=== PATIENT | male | born 1995 | race Caucasian/White ===

== ENCOUNTER → 2021-02-05 09:24 | Outpatient (BNVA) | payer BC, SELFPAY | PROVIDERS: PCP Nurse Practitioner Family; Referring Provider Nurse Practitioner Family; Visit Provider Nurse Practitioner Family ==

== ENCOUNTER → 2021-02-18 15:11 | Outpatient (REF) | payer BC, SELFPAY | LOC: HO.SL 15:11 | PROVIDERS: PCP Nurse Practitioner Family; Visit Provider Nurse Practitioner Family | DX: G47.9 Sleep disorder, unspecified (principal); G47.19 Other hypersomnia; R06.83 Snoring | CPT/HCPCS: 95806 ==

== ENCOUNTER 2021-07-10 05:02 | Inpatient (IN) | payer BC, SELFPAY ==
[2021-07-10] VITALS (18 sets, daily range): BP systolic 128–160; BP diastolic 59–86; PULSE 73–104; RESP 11–18; TEMP 36.8–37.7; O2SAT 94–99; BMI 39.6
--- NOTE | ~2021-07-10 | CT_ITS ---
EXAMINATION: CT ABDOMEN AND PELVIS WITH CONTRAST CLINICAL INFORMATION: Right lower quadrant pain with guarding and rebound. COMPARISON: None TECHNIQUE: Multidetector volumetric images were obtained from the superior aspect of the liver through the pubic symphysis following administration 85 mL of Omnipaque 350 intravenous contrast. Sagittal and coronal reformatted images were obtained on the technologist's workstation. Oral contrast: No This CT examination was performed using dose optimization techniques as appropriate, variously including the following: *Automated exposure control *Adjustment of mA and/or kV according to patient size (this includes techniques or standardized protocols for targeted exams where dose is matched to indication/reason for exam; i.e. extremities or head) *Use of iterative reconstruction technique DLP: 859 mGy-cm FINDINGS: LUNG BASES: The visualized lung bases are unremarkable. LIVER, GALLBLADDER, AND BILIARY TREE: The liver is normal in size and smooth in contour and homogeneous. There is borderline hepatic steatosis. No focal hepatic parenchymal lesion or intrahepatic ductal dilatation. The gallbladder is unremarkable with no evidence of radiopaque gallstones, gallbladder wall thickening, or obvious pericholecystic inflammatory changes. PANCREAS: Unremarkable. SPLEEN: Mild splenomegaly, 15 cm sagittal dimension. Homogeneous. ADRENAL GLANDS: Unremarkable. KIDNEYS AND URETERS: The kidneys are normal in size, shape, and attenuation. No hydronephrosis, hydroureter, or calculi seen. No perinephric stranding. BLADDER: Unremarkable. GASTROINTESTINAL TRACT: There is prominent acute appendicitis with enlarged fluid filled appendix measuring 1.9 cm in diameter with wall enhancement and significant stranding in the right lower quadrant. There is an appendicolith within the lumen measuring 7 x 10 x 17 mm. There is fluid right lower quadrant. There are no extraintestinal gas bubbles or pneumatosis. No proximal obstruction. No loculated fluid collection. ABDOMINAL WALL: No significant hernia is appreciated. LYMPH NODES: Mesenteric adenopathy right lower quadrant adjacent to the appendicitis. VASCULAR: Unremarkable. PELVIC VISCERA: Trace right pelvic ascites. OSSEOUS STRUCTURES: Unremarkable. Results called and discussed with BRENDA Altamirano in the emergency department at [address]/CT abdomen pelvis w con IMPRESSION: 1. Acute appendicitis with extensive periappendiceal inflammatory changes and right lower quadrant fluid and mesenteric adenopathy. 2. No loculated fluid collection. No proximal obstruction. 3. Mild splenomegaly, 15 cm sagittal dimension.
--- NOTE | 2021-07-10 06:20 | ED.ABDPAIN ---
HPI - Abdominal Pain General Chief Complaint: Abdominal Pain Stated Complaint: stomach pain Time Seen by Provider: 07/10/21 06:11 Source: patient Mode of arrival: ambulatory Limitations: no limitations History of Present Illness HPI narrative: INcreased abdominal pain for 1 day, now with continual vomiting. Increased pain in the right lower. MD elicited complaint: abdominal pain Onset (ago): day(s) Pain Consistency: constant Location: RLQ Severity: moderate Quality: stabbing Migration to: RLQ Associated symptoms: nausea and vomiting Related Data Home Medications Medication Instructions Recorded Confirmed sertraline 100 mg tablet 150 mg PO BEDTIME tab 02/05/21 07/10/21 Allergies Allergy/AdvReac Type Severity Reaction Status Date / Time No Known Allergies Allergy Verified 02/05/21 09:32 Review of Systems Constitutional: Reports no additional constitutional complaints Eyes: Reports no additional eye complaints Denies dizziness Cardiovascular: Reports no additional cardiovascular complaints Respiratory: Reports as per HPI Gastrointestinal: Reports no additional gastrointestinal complaints Musculoskeletal: Reports no additional musculoskeletal complaints Skin/Breast: Denies rash Reports system reviewed and no additional complaints, except as documented, Denies dizziness and Denies Sensory deficit (Neuro) Psychiatric: Denies anxiety Physical Exam Vital Signs: Vital Signs: Last Vital Signs Temp 98.3 F 07/10/21 10:37 Pulse 89 07/10/21 10:37 Resp 16 07/10/21 10:37 BP 144/86 H 07/10/21 10:37 Pulse Ox 99 07/10/21 10:37 BMI result Body Mass Index 39.6 Const: Other: Patient in pain Nutritional Appearance: average body habitus Orientation/consciousness: oriented to person and patient oriented x3 Limitations: no limitations HENMT: Head: Yes normal to inspection Ears: external ears normal General nose exam: Normal external nose present Mouth: Normal oral and palatal mucosa present and oropharynx normal Throat: Yes posterior oropharynx normal Eyes: General: appearance normal, both eyes and all related structures Neck: Other: supple Neck: Yes normal visual inspection Chest: Chest palpation & inspection: normal inspection of the chest Resp: Auscultation: clear to auscultation bilaterally Cardio: Jugular venous distension: no JVD Rate: regular rate Rhythm: regular rhythm Heart sounds: S1 normal heart sound present and S2 normal heart sound present GI: Other: right lower quadrant with guarding and rebound Auscultation: normal bowel sounds : General: Yes no CVA tenderness Back/Spine/Pelvis: Back: no CVA tenderness Skin: General skin exam: no rashes or lesions noted Neuro: General: oriented to person and patient oriented x3 Cranial nerves: Yes CN's II-XII intact bilaterally Motor exam (neuro): 5/5 motor strength present throughout Sensory Exam: No Sensory deficit (Neuro) Extrem: General: Yes normal to inspection Psych: Appearance: grossly normal Course Reevaluation(s) Reevaluation #1: discussed with Dr. Chacon who wanted a CT scan. Possible early phlegmon so I started zosyn Time: 08:50 MDM - Abdominal Pain Lab Data Result diagrams: 07/10/21 07:00 07/10/21 07:00 Labs: Lab Results 07/10/21 07/10/21 07/10/21 Range/Units 06:13 07:00 07:00 WBC 16.8 H (4.8-10.8) X10*3/uL RBC 4.81 (4.60-5.80) X10*6/uL Hgb 15.9 (14.0-18.0) g/dl Hct 43.3 (42.0-52.0) % MCV 90.0 (80.0-98.0) fL MCH 33.1 H (27.0-33.0) pg MCHC 36.7 H (31.0-36.0) g/dl RDW 11.5 (11.0-16.0) % Plt Count 230 (160-400) X10*3/uL MPV 9.0 L (9.4-12.4) fL Immature Gran % (Auto) 0.5 H (0.0-0.4) % Neut % (Auto) 87.6 H (45-73) % Lymph % (Auto) 3.5 L (20-40) % [place] % (Auto) 8.2 (2-11) % Eos % (Auto) 0.0 (0-4) % Baso % (Auto) 0.2 (0-2) % Lymph # (Auto) 0.6 L (1.2-4.9) X10*3/uL [place] # (Auto) 1.4 H (0.1-1.2) X10*3/uL Eos # (Auto) 0.0 (0.0-0.4) X10*3/uL Baso # (Auto) 0.0 (0.0-0.2) X10*3/uL Abs Immat Gran (auto) 0.08 H (0.00-0.03) X10*3/uL Absolute Neuts (auto) 14.7 H (2.0-8.3) x10*3/uL Absolute Nucleated RBC 0.000 (0.0-0.012) X10*3/uL Nucleated RBC % (auto) 0.0 (0.0-0.2) /100WBC Sodium 138 (135-145) mmol/L Potassium 3.8 (3.3-5.1) mmol/L Chloride 102 (96-108) mmol/L Carbon Dioxide 24 (22-29) mmol/L Anion Gap 16 (12-20) BUN 13 (9-16) mg/dL Creatinine 1.09 (0.5-1.4) mg/dL Estim Creat Clear Calc 129.3 Estimated GFR > 60 Random Glucose 145 H (60-115) mg/dL Calcium 10.4 H (8.4-10.2) mg/dL Total Bilirubin 1.2 H (0.0-1.0) mg/dL AST 26 (5-37) U/L ALT 31 (0-40) U/L Alkaline Phosphatase 34 L (39-117) U/L Total Protein 7.5 (6.5-8.0) g/dL Albumin 4.6 (3.5-5.0) g/dL Lipase 6 L (8-78) U/L Urine Color Urine Appearance Urine pH (5.0-8.0) Ur Specific [place] (1.005-1.025) Urine Protein (NEG-TRACE) MG/DL Urine Glucose (UA) (NEG) MG/DL Urine Ketones (NEG) MG/DL Urine Blood (NEG) Urine Nitrite (NEG) Ur Leukocyte Esterase (NEG) Urine RBC (0) /HPF Urine WBC (0-4) /HPF Ur Squamous Epith Cells /LPF Urine Bacteria /LPF Urine Mucus /LPF COVID-19 (TENA) Negative (Negative) COVID-19 Clin Com See Note 07/10/21 Range/Units 07:00 WBC (4.8-10.8) X10*3/uL RBC (4.60-5.80) X10*6/uL Hgb (14.0-18.0) g/dl Hct (42.0-52.0) % MCV (80.0-98.0) fL MCH (27.0-33.0) pg MCHC (31.0-36.0) g/dl RDW (11.0-16.0) % Plt Count (160-400) X10*3/uL MPV (9.4-12.4) fL Immature Gran % (Auto) (0.0-0.4) % Neut % (Auto) (45-73) % Lymph % (Auto) (20-40) % [place] % (Auto) (2-11) % Eos % (Auto) (0-4) % Baso % (Auto) (0-2) % Lymph # (Auto) (1.2-4.9) X10*3/uL [place] # (Auto) (0.1-1.2) X10*3/uL Eos # (Auto) (0.0-0.4) X10*3/uL Baso # (Auto) (0.0-0.2) X10*3/uL Abs Immat Gran (auto) (0.00-0.03) X10*3/uL Absolute Neuts (auto) (2.0-8.3) x10*3/uL Absolute Nucleated RBC (0.0-0.012) X10*3/uL Nucleated RBC % (auto) (0.0-0.2) /100WBC Sodium (135-145) mmol/L Potassium (3.3-5.1) mmol/L Chloride (96-108) mmol/L Carbon Dioxide (22-29) mmol/L Anion Gap (12-20) BUN (9-16) mg/dL Creatinine (0.5-1.4) mg/dL Estim Creat Clear Calc Estimated GFR Random Glucose (60-115) mg/dL Calcium (8.4-10.2) mg/dL Total Bilirubin (0.0-1.0) mg/dL AST (5-37) U/L ALT (0-40) U/L Alkaline Phosphatase (39-117) U/L Total Protein (6.5-8.0) g/dL Albumin (3.5-5.0) g/dL Lipase (8-78) U/L Urine Color YELLOW Urine Appearance CLEAR Urine pH 6.5 (5.0-8.0) Ur Specific [place] 1.025 (1.005-1.025) Urine Protein 1+ H (NEG-TRACE) MG/DL Urine Glucose (UA) NEG (NEG) MG/DL Urine Ketones 5 (NEG) MG/DL Urine Blood NEG (NEG) Urine Nitrite NEG (NEG) Ur Leukocyte Esterase NEG (NEG) Urine RBC 0 (0) /HPF Urine WBC 0-2 (0-4) /HPF Ur Squamous Epith Cells NONE /LPF Urine Bacteria NONE /LPF Urine Mucus 1+ /LPF COVID-19 (TENA) (Negative) COVID-19 Clin Com Discharge Plan Discharge Clinical Impression: Acute appendicitis Qualifiers: Acute appendicitis type: with localized peritonitis Appendicitis gangrene presence: without gangrene Appendicitis perforation presence: without perforation Appendicitis abscess presence: without abscess Qualified Code(s): K35.30 - Acute appendicitis with localized peritonitis, without perforation or gangrene Patient Disposition: Admitted As Inpatient Interventions: Admission Worksheet (ED) Last Done: 07/10/21 10:31 [facility] Family History Family History (Updated 07/10/21 @ 10:18 by Kari Urban MD) Father No problems noted. Mother No problems noted. 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
[2021-07-10 06:40] LABS: COVID-19 Test Negative (Negative)
[2021-07-10 07:06] LABS: MANUAL DIFF FLAG NO
[2021-07-10] MEDS: Morphine Sulfate 4 MG/ML CARTRIDGE IVPUSH ×5 (07:07→23:50)
[2021-07-10] MEDS: ondansetron HCL 4 MG/2 ML VIAL IVPUSH ×2 (07:07→16:18)
[2021-07-10] MEDS: 0.9 % Sodium Chloride 1,000 ML 999 ML IVCONT ×2 (07:07→08:06)
[2021-07-10 07:11] LABS: Appearance Urine CLEAR; Basophils Percent Auto 0.2 % (0-2); Color Urine YELLOW; Glucose Urine UA NEG (NEG); Hematocrit 43.3 % (42.0-52.0); Hemoglobin 15.9 g/dl (14.0-18.0); Imm Gran Abs Auto 0.08 X10*3/uL (0.00-0.03); Imm Gran Pct Auto 0.5 % (0.0-0.4); Leukocyte Esterase Urine NEG (NEG); Lymphocytes Absolute Auto 0.6 X10*3/uL (1.2-4.9); Lymphocytes Percent Auto 3.5 % (20-40); Mean Corpuscular HGB Conc 36.7 g/dl (31.0-36.0); Mean Corpuscular Hemoglobin 33.1 pg (27.0-33.0); Monocytes Absolute Auto 1.4 X10*3/uL (0.1-1.2); Monocytes Percent Auto 8.2 % (2-11); Neutrophils Absolute Auto 14.7 x10*3/uL (2.0-8.3); Neutrophils Percent Auto 87.6 % (45-73); Nitrite Urine NEG (NEG); PH 6.5 (5.0-8.0); Platelet Count 230 X10*3/uL (160-400); Red Blood Count 4.81 X10*6/uL (4.60-5.80); Red Cell Distribution Width 11.5 % (11.0-16.0); Specific Gravity - Urine 1.025 (1.005-1.025); UACC Culture Trigger NO; Urine Blood NEG (NEG); Urine Ketones 5 MG/DL (NEG); Urine Protein 1+ MG/DL (NEG-TRACE); White Blood Count 16.8 X10*3/uL (4.8-10.8)
--- NOTE | 2021-07-10 07:18 | PC.NURSE ---
nad, reports improvement in pain and nausea
[2021-07-10 07:24] LABS: Mucus Urine 1+ /LPF; RBC Urine 0 /HPF (0); WBC Urine 0-2 /HPF (0-4)
[2021-07-10 07:29] LABS: Alanine Aminotransferase 31 U/L (0-40); Albumin Level 4.6 g/dL (3.5-5.0); Alkaline Phosphatase 34 U/L (39-117); Anion Gap 16 (12-20); Aspartate Amino Transferase 26 U/L (5-37); Bilirubin Total 1.2 mg/dL (0.0-1.0); Blood Urea Nitrogen 13 mg/dL (9-16); Calcium 10.4 mg/dL (8.4-10.2); Carbon Dioxide 24 mmol/L (22-29); Chloride 102 mmol/L (96-108); Creatinine Clr Calc Pharmacy 129.3; Estimated Glomerular Filt Rate > 60; Glucose Random 145 mg/dL (60-115); Lipase 6 U/L (8-78); Potassium 3.8 mmol/L (3.3-5.1); Sodium 138 mmol/L (135-145); Total Protein 7.5 g/dL (6.5-8.0)
[2021-07-10] MEDS: iohexoL 350 MG/ML 100 ML INFUS..BTL IV (08:29)
[2021-07-10] MEDS: Piperacillin Sodium/Tazobactam 3.375 GM in 0.9 % Sodium Chloride 50 ML IV (08:56)
--- NOTE | 2021-07-10 09:23 | PC.NURSE ---
met w surgeon, pain up to 4/10 medicated for pain, skin wpd, aware of care plan
--- NOTE | 2021-07-10 10:07 | PHA.MEDREC ---
Pharmacy Consult ? Medication Reconciliation Pharmacy has completed the medication reconciliation. There are no remarkable issues for provider's attention. Kaylee Don, AbiolaD
--- NOTE | 2021-07-10 10:14 | P.HPGS_ITS ---
History of Present Illness History of Present Illness Date of Service: 07/10/21 Chief complaint: Acute Appendicitis Narrative: Zane Gonzalez is a 26 year old male who presented to the emergency department during the night with a 2 day history of abdominal pain. The abdominal pain initially was diffuse. He had some nausea and vomiting that became more severe over time. The abdominal pain has localized to the right lower quadrant and is severe. He does not report fever or chills. He has not had similar problems in the past. He has no urinary complaints. In the emergency department, white blood count was elevated at 16.8. CT scan of the abdomen and pelvis was obtained and was consistent with acute appendicitis with appendicoliths and possible phlegmon. Review of Systems Constitutional: Constitutional: Denies chills, Reports difficulty sleeping (Due to pain), Denies fatigue and Denies fever(s) Eyes: Eyes: Reports no additional eye complaints ENT: Denies hearing loss Cardiovascular: Cardiovascular: Denies chest pain, Denies rapid heart rate and Denies dyspnea Respiratory: Respiratory: Denies cough, Denies dyspnea and Denies wheezing Gastrointestinal: Gastrointestinal: Reports as per HPI Genitourinary: Genitourinary: Reports no additional male genitourinary c omplaints Musculoskeletal: Musculoskeletal: Reports no additional musculoskeletal complaints Endocrine: Endocrine: Denies fatigue Hematologic/Lymphatic: Hematologic/Lymphatic: Denies easy bleeding Allergic/Immunologic: Allergic/Immunologic: Denies wheezing [facility] Family History Family History (Updated 07/10/21 @ 10:18 by Kari Urban MD) Father No problems noted. Mother No problems noted. 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 Allergies Allergy/AdvReac Type Severity Reaction Status Date / Time No Known Allergies Allergy Verified 02/05/21 09:32 Active Medications: Current Medications Pharmacy Consult (Consult Rx Perform Med Rec) 1 each MISCELLANE ONCE PRN PRN Reason: Consult order Home Medications Medication Instructions Recorded Confirmed Last Taken Type sertraline 100 mg tablet 150 mg PO BEDTIME tab 02/05/21 07/10/21 06/10/21 History Physical Exam Vital Signs: Vital Signs: Last Vital Signs Temp 98.2 F 07/10/21 09:20 Pulse 82 07/10/21 09:20 Resp 18 07/10/21 09:20 BP 128/59 L 07/10/21 09:20 Pulse Ox 97 07/10/21 09:20 Body Mass Index 39.6 Const: Other: Appears uncomfortable but in no acute distress General: cooperative HENMT: Head: Yes normocephalic and Yes atraumatic Ears: hearing grossly normal bilaterally Eyes: General: appearance normal, both eyes and all related structures Neck: Neck: Yes trachea midline and Yes supple Resp: Effort & Inspection: normal respiratory effort Auscultation: clear to auscultation bilaterally Cardio: Rate: regular rate Rhythm: regular rhythm GI: Other: Round, soft, markedly tender right lower quadrant with rebound and positive Rovsing sign, no palpable masses or organomegaly Rectal Exam - Male: Yes deferred Extrem: General: Yes normal to inspection Psych: Affect: normal affect Thought process: Normal thought process present Results Results Labs: Short CBC 07/10/21 Range/Units 07:00 WBC 16.8 H (4.8-10.8) X10*3/uL Hgb 15.9 (14.0-18.0) g/dl Hct 43.3 (42.0-52.0) % Plt Count 230 (160-400) X10*3/uL BMP 07/10/21 07:00 Sodium 138 Potassium 3.8 Chloride 102 Carbon Dioxide 24 BUN 13 Creatinine 1.09 Calcium 10.4 H Liver Function 07/10/21 Range/Units 07:00 Total Bilirubin 1.2 H (0.0-1.0) mg/dL AST 26 (5-37) U/L ALT 31 (0-40) U/L Alkaline Phosphatase 34 L (39-117) U/L Albumin 4.6 (3.5-5.0) g/dL Urine 07/10/21 Range/Units 07:00 Urine Color YELLOW Urine Appearance CLEAR Urine pH 6.5 (5.0-8.0) Ur Specific [place] 1.025 (1.005-1.025) Urine Protein 1+ H (NEG-TRACE) MG/DL Urine Glucose (UA) NEG (NEG) MG/DL Abdomen CT scan report/results: report reviewed and image reviewed CT scan - pelvis: report reviewed and image reviewed Assessment and Plan (1) Acute appendicitis: Qualifiers: Acute appendicitis type: with localized peritonitis Appendicitis abscess presence: without abscess Appendicitis gangrene presence: without gangrene Appendicitis perforation presence: without perforation Qualified Code(s): K35.30 - Acute appendicitis with localized peritonitis, without perforation or gangrene Status: Acute 26-year-old male presenting with right lower quadrant pain, nausea vomiting, and exam and CT findings consistent with acute appendicitis. CT suggests the possibility of phlegmon. There is an appendicolith. We discussed options for treatment. Because of the relatively short time course and presence of appendicoliths which is a relative contraindication to antibiotic therapy, I have recommended surgery, laparoscopic appendectomy with potential need to convert to open. I discussed this with him and with his mother who was present at bedside. We reviewed the technique of surgery, anticipated course of recovery after either laparoscopic or open appendectomy, and surgical risks including but not limited to infection, bleeding, DVT and PE, error in diagnosis, incisional hernia, and appendiceal stump leak. He wishes to proceed with surgery and that has been scheduled for later today. Quality Stroke Does the patient have a stroke diagnosis?: No VTE Prior VTE?: No VTE Risk Level:: Surgical - low VTE Device Contraindication: N/A - Device Ordered VTE Drug Contraindication: Treatment Not Indicated Procedures Date of Service Date of Service: 07/10/21
--- NOTE | 2021-07-10 11:23 | P.CONAN_ITS ---
HPI - Anesthesia Eval Consult details Narrative: 26 M for laproscopic appendectomy PMFSH Active Problems Active Problems: All Active Problems (Updated 07/10/21 @ 08:51 by Tuan Dumont MD) Acute appendicitis (Acute) Excessive daytime sleepiness (Acute) Snoring (Acute) Sleep disorder, unspecified (Acute) Sleep apnea (Acute) Physical exam (Acute) Past Medical History Functional capacity: independent ambulation Family History Family History (Updated 07/10/21 @ 10:18 by Kari Urban MD) Father No problems noted. Mother No problems noted. Maternal Uncle Abdominal aortic aneurysm Family history of problems with anesthesia: No Surgical History History of Problems with Anesthesia: No Social History Social History (Updated 07/10/21 @ 10:19 by Kari Urban MD) Alcohol intake: current Alcohol intake frequency: a few times a week Patient Tobacco Use Status: Never used Tobacco Second Hand Smoke Exposure: No Use of substances other than those prescribed or required for medical reasons: Yes Substance Use Type: Marijuana Substance Use Frequency: Daily Are you DNR?: No Advance Directives: No Advance Directives Information Provided: Yes Current occupational status: employed 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 Meds Allergies Allergy/AdvReac Type Severity Reaction Status Date / Time No Known Allergies Allergy Verified 02/05/21 09:32 Active Medications: Current Medications Pharmacy Consult (Consult Rx Perform Med Rec) 1 each MISCELLANE ONCE PRN PRN Reason: Consult order Home Medications Medication Instructions Recorded Confirmed Last Taken Type sertraline 100 mg tablet 150 mg PO BEDTIME tab 02/05/21 07/10/21 06/10/21 History Exam Exam Date and Time: July 10, 2021 1123 Height,Weight and Vital Signs: Height 5 ft 8 in Weight 118.12 kg Last Vital Signs Temp 98.3 F 07/10/21 10:37 Pulse 89 07/10/21 10:37 Resp 16 07/10/21 10:37 BP 144/86 H 07/10/21 10:37 Pulse Ox 99 07/10/21 10:37 Pertinent Lab Results Pertinent Lab Results: Laboratory Tests 07/10/21 07/10/21 07/10/21 06:13 07:00 07:00 WBC 16.8 H RBC 4.81 Hgb 15.9 Hct 43.3 MCV 90.0 MCH 33.1 H MCHC 36.7 H RDW 11.5 Plt Count 230 MPV 9.0 L Immature Gran % (Auto) 0.5 H Neut % (Auto) 87.6 H Lymph % (Auto) 3.5 L [place] % (Auto) 8.2 Eos % (Auto) 0.0 Baso % (Auto) 0.2 Lymph # (Auto) 0.6 L [place] # (Auto) 1.4 H Eos # (Auto) 0.0 Baso # (Auto) 0.0 Abs Immat Gran (auto) 0.08 H Absolute Neuts (auto) 14.7 H Absolute Nucleated RBC 0.000 Nucleated RBC % (auto) 0.0 Sodium 138 Potassium 3.8 Chloride 102 Carbon Dioxide 24 Anion Gap 16 BUN 13 Creatinine 1.09 Estim Creat Clear Calc 129.3 Estimated GFR > 60 Random Glucose 145 H Calcium 10.4 H Total Bilirubin 1.2 H AST 26 ALT 31 Alkaline Phosphatase 34 L Total Protein 7.5 Albumin 4.6 Lipase 6 L Urine Color Urine Appearance Urine pH Ur Specific [place] Urine Protein Urine Glucose (UA) Urine Ketones Urine Blood Urine Nitrite Ur Leukocyte Esterase Urine RBC Urine WBC Ur Squamous Epith Cells Urine Bacteria Urine Mucus COVID-19 (TENA) Negative COVID-19 ITDatabase Com See Note 07/10/21 07:00 WBC RBC Hgb Hct MCV MCH MCHC RDW Plt Count MPV Immature Gran % (Auto) Neut % (Auto) Lymph % (Auto) [place] % (Auto) Eos % (Auto) Baso % (Auto) Lymph # (Auto) [place] # (Auto) Eos # (Auto) Baso # (Auto) Abs Immat Gran (auto) Absolute Neuts (auto) Absolute Nucleated RBC Nucleated RBC % (auto) Sodium Potassium Chloride Carbon Dioxide Anion Gap BUN Creatinine Estim Creat Clear Calc Estimated GFR Random Glucose Calcium Total Bilirubin AST ALT Alkaline Phosphatase Total Protein Albumin Lipase Urine Color YELLOW Urine Appearance CLEAR Urine pH 6.5 Ur Specific [place] 1.025 Urine Protein 1+ H Urine Glucose (UA) NEG Urine Ketones 5 Urine Blood NEG Urine Nitrite NEG Ur Leukocyte Esterase NEG Urine RBC 0 Urine WBC 0-2 Ur Squamous Epith Cells NONE Urine Bacteria NONE Urine Mucus 1+ COVID-19 (TENA) COVID-19 Clin Com Airway Mallampati Class: II TM Dist: >3cm Neck ROM: Full Loose/Missing/Broken Teeth: No Assessment and Plan Assessment Anesthesia Assessment: Anesthesia Plan Discussed Final Anesthetic Review Family History of Problems with Anesthesia: No History of Problems with Anesthesia: No NPO: Yes ASA Class: II and Emergency Final Preanesthetic Review: Meds/Amadougs Chart Reviewed Patient Risk: Intermediate Procedure Risk: Intermediate Anesthetic Plan Anesthetic Plan: GA Disposition: Standard PACU
--- NOTE | 2021-07-10 11:36 | MHC.SHP ---
Pre-Procedural Eval Section A Date of Service: 07/10/21 The patient is an INPATIENT: Yes The History & Physical has been completed within 30 days and I have reviewed it.: Yes Section B Chief Complaint: Acute Appendicitis Allergies: Allergies Allergy/AdvReac Type Severity Reaction Status Date / Time No Known Allergies Allergy Verified 02/05/21 09:32 Plan Diagnosis/Plan: Unchanged I have reviewed the history and physical and performed a pertinent physical examination on my patient. No changes have occurred unless specified.
--- NOTE | 2021-07-10 13:21 | PM.OP ---
Brief Operative Note Date of Service: 07/10/21 Pre-op diagnosis: Acute Appendicitis Post-op diagnosis: same Procedure: laparoscopic appendectomy Surgeon: Kari Urban MD Anesthesia: GETA Was an Risk And Insurance Manager used for this Procedure?: Yes Risk And Insurance Manager: Roro Jim Estimated blood loss (mL): 20 Pathology: other (appendix) Condition: stable Disposition: PACU
[2021-07-10] MEDS: HYDROmorphone HCl 0.5 MG/0.5 ML SYRINGE 0.25 MG IVPUSH ×3 (13:28→13:38)
--- NOTE | 2021-07-10 13:36 | W.PM.OPN ---
Operative Note Operative Note Date of Service: 07/10/21 Narrative: preoperative diagnosis: Acute appendicitis Postoperative diagnosis: Same Procedure: laparoscopic appendectomy Oracle Technical Architect: Roro Jim PA-C anesthesia: General endotracheal Specimen: Appendix Estimated blood loss: 20 cc Immediate complications: None Indications: Patient is 26-year-old who developed diffuse abdominal pain about 2 days ago. The pain localized to the right lower quadrant and became severe. Examination revealed marked right lower quadrant tenderness with rebound and CT scan of the abdomen and pelvis was consistent with acute appendicitis. Procedure in detail: With the patient in the supine position following the induction of adequate general anesthesia, the abdomen was prepped with ChloraPrep and was draped sterilely. 2 g of cefotetan were infused for antibiotic prophylaxis. Time-out procedure was performed. Each trocar site was infiltrated with local anesthetic prior to making incisions. An infraumbilical incision was made and was carried down to the level the fascia. The fascia was elevated in the midline with a Austin clamp and holding sutures were placed on either side using 0 Polysorb. The fascia was then incised in the midline and the peritoneal cavity was entered. The [place] trocar was positioned and stabilized with the fascial sutures. The abdomen was insufflated with carbon dioxide to pressure of 15 mmHg. The 0 degree 5 mm laparoscopic was inserted in the peritoneal cavity was visualized. No abnormalities were noted initially except for a small amount of exudate in the right lower quadrant at about the level of the ileocecal valve. Two 5 mm trocars were position, 1 laterally in the left lower quadrant and 1 in the suprapubic position. Patient was rotated slightly left side down. Using a blunt dissect ers, the cecum was identified and followed to the tip. . The base of the appendix was identified. The appendix appeared to be lying in a retrocecal position with the tip cephalad along the right paracolic gutter. The mesoappendix was adherent to the right mesocolon and was partially dissected free. The appendix was adherent to the retroperitoneum. It was soft and pliable near the base. The appendix was therefore dissected free circumferentially at the junction with the cecum. The laparoscopic was exchanged for a 5 Mm 30 degree scope. the laparoscopic was removed and placed through the left lower quadrant port. An Endo RAYSHAWN 30, purple load was inserted through the [place] trocar and was angled and placed across the base of the appendix at the junction with the cecum. The device was closed. The jaws were inspected to ensure that no extraneous tissues were included and the device was fired, opened and removed. The mesoappendix was then divided using the 5 mm laparoscopic LigaSure or moving from proximal to distal. During manipulation of the distal appendix, it was torn and slightly and some murky appearing fluid drained. This was suctioned out. The remaining attachments to the mesoappendix were divided using the LigaSure. The specimen pouch was then inserted through the [place] trocar and the appendix was placed into the pouch. The pouch and [place] trocar were then removed along with the appendix. The has saw as reinserted and the laparoscopic was placed back through it. The staple line at the base of the cecum was inspected and was found to be intact. The right lower quadrant and right pericolic gutter copiously irrigated with saline solution. There was no evidence of bleeding. 5 mm trocars were then removed under direct vision, again with no bleeding seen. Insufflation was discontinued and gas was let his gait from the peritoneal cavity. The [place] trocar was removed. Fascia at the [place] site was closed with a great suture 0 Polysorb and holding sutures were tied to 1 another. Skin incisions were closed with subcuticular sutures of 4-0 Polysorb and Steri-Strips and dry sterile dressings were applied. He tolerated the procedure well and was transported to the recovery room stable condition. There were no immediate complications.
[2021-07-10] MEDS: Lactated Ringers 1,000 ML 80 ML IVCONT (15:30)
[2021-07-10] MEDS: Acetaminophen 325 MG TABLET 650 MG PO ×2 (17:51→23:49)
--- NOTE | 2021-07-10 19:04 | P.EN_ITS ---
Event Note Date of Service: 07/10/21 Event Note: Reports incisional pain. Preoperative pain has resolved. Tolerat ing fluids. Not hungry yet. reports difficulty with nausea and vomiting related to oxycodone in the past. Will switch to p.o. Dilaudid. Add Toradol, ice packs
[2021-07-10] MEDS: Sertraline HCL 50 MG TABLET 150 MG PO (21:20)
[2021-07-10] MEDS: cefoTEtan disodium 2 GM in 0.9 % Sodium Chloride 50 ML IV (22:58)
[2021-07-11] VITALS: BP 144/65; PULSE 66; RESP 16; TEMP 35.9; O2SAT 94
[2021-07-11 01:13] VITALS: RESP 18
[2021-07-11 01:14] VITALS: RESP 18
[2021-07-11] MEDS: Lactated Ringers 1,000 ML 80 ML IVCONT (03:57)
[2021-07-11] MEDS: Acetaminophen 325 MG TABLET 650 MG PO ×2 (05:53→11:22)
[2021-07-11 07:20] VITALS: BP 124/59; PULSE 80; RESP 16; TEMP 36.4; O2SAT 96
[2021-07-11 07:25] VITALS: RESP 17
[2021-07-11] MEDS: Morphine Sulfate 4 MG/ML CARTRIDGE IVPUSH ×2 (07:25→12:45)
--- NOTE | 2021-07-11 07:48 | PM.PNGS ---
Subjective Subjective Date of Service: 07/11/21 Interval history: Patient feels improved, reports only periumbilical pain. He ate a few crackers and water last night. Denies nausea or vomiting. Physical Exam Vital Signs: Vital Signs: Last Vital Signs Temp 97.5 F 07/11/21 07:20 Pulse 80 07/11/21 07:20 Resp 17 07/11/21 07:25 BP 124/59 L 07/11/21 07:20 Pulse Ox 96 07/11/21 07:20 BMI result Body Mass Index 39.6 Const: General: cooperative, comfortable and no acute distress Nutritional Appearance: well nourished Orientation/consciousness: patient oriented x3 Limitations: no limitations Resp: Effort & Inspection: normal respiratory effort, not labored and no stridor GI: Inspection: Yes incision (C,D, & I) Palpation (GI): Soft to palpation, Tenderness to palpation present (GI) periumbilically, no guarding and not rigid Neuro: General: patient oriented x3 Extrem: General: Yes no clubbing, cyanosis or edema Objective Data Active Medications Acetaminophen (Acetaminophen 325 Mg Tablet) 650 mg PO Q6H [facility] Last Admin: 07/11/21 05:53 Dose: 650 mg Documented by: HAILE Hydromorphone HCl (Hydromorphone Hcl 2 Mg Tablet) 1 mg PO Q3H PRN PRN Reason: Pain, Moderate (Pain Scale 4-6 Lactated Ringer's (Lr) 1,000 mls @ 80 mls/hr IVCONT .[id number] [facility] Last Admin: 07/11/21 03:57 Dose: 80 mls/hr Documented by: HAILE Ketorolac Tromethamine (Ketorolac Tromethamine 30 Mg/Ml Vial) 30 mg IVPUSH Q6H PRN PRN Reason: Pain, Moderate (Pain Scale 4-6 Morphine Sulfate (Morphine Sulfate 4 Mg/Ml Cartridge) 4 mg IVPUSH Q3H PRN; Protocol PRN Reason: Pain, severe Last Admin: 07/11/21 07:25 Dose: 4 mg Documented by: ROQUE Ondansetron HCl (Ondansetron Hcl 4 Mg/2 Ml Vial) 4 mg IVPUSH Q8H PRN PRN Reason: Nausea Last Admin: 07/10/21 16:18 Dose: 4 mg Documented by: ROQUE Pharmacy Consult (Consult Rx Perform Med Rec) 1 each MISCELLANE ONCE PRN PRN Reason: Consult order Sertraline HCl (Sertraline Hcl 50 Mg Tablet) 150 mg PO BEDTIME [facility] Last Admin: 07/10/21 21:20 Dose: 150 mg Documented by: CLARK Labs CBC & Chem 7: 07/10/21 07:00 07/10/21 07:00 Procedures Date of Service Date of Service: 07/11/21 Progress Note: A&P Assessment and plan (1) Acute appendicitis: Status: Acute (2) S/P appendectomy: Status: Acute Assessment and Plan: POD #1 s/p laparoscopic appendectomy. He feels improved with only incisional pain. Wounds are clean and intact without redness or discharge. He will try a regular diet today and switch to po pain meds prn. Encouraged OOB. Possible discharge later today. Fall Risk Details Current Medications: Current Medications Acetaminophen (Acetaminophen 325 Mg Tablet) 650 mg PO Q6H [facility] Last Admin: 07/11/21 05:53 Dose: 650 mg Documented by: Hydromorphone HCl (Hydromorphone Hcl 2 Mg Tablet) 1 mg PO Q3H PRN PRN Reason: Pain, Moderate (Pain Scale 4-6 Lactated Ringer's (Lr) 1,000 mls @ 80 mls/hr IVCONT .[id number] [facility] Last Admin: 07/11/21 03:57 Dose: 80 mls/hr Documented by: Ketorolac Tromethamine (Ketorolac Tromethamine 30 Mg/Ml Vial) 30 mg IVPUSH Q6H PRN PRN Reason: Pain, Moderate (Pain Scale 4-6 Morphine Sulfate (Morphine Sulfate 4 Mg/Ml Cartridge) 4 mg IVPUSH Q3H PRN; Protocol PRN Reason: Pain, severe Last Admin: 07/11/21 07:25 Dose: 4 mg Documented by: Ondansetron HCl (Ondansetron Hcl 4 Mg/2 Ml Vial) 4 mg IVPUSH Q8H PRN PRN Reason: Nausea Last Admin: 07/10/21 16:18 Dose: 4 mg Documented by: Pharmacy Consult (Consult Rx Perform Med Rec) 1 each MISCELLANE ONCE PRN PRN Reason: Consult order Sertraline HCl (Sertraline Hcl 50 Mg Tablet) 150 mg PO BEDTIME [facility] Last Admin: 07/10/21 21:20 Dose: 150 mg Documented by: Time Spent With Patient Time: Total time spent is greater than 50% in coordination of care (as documented) at patient's floor/unit and/or counseling patient: Time with patient: 15 - 24 minutes Quality Stroke Does the patient have a stroke diagnosis?: No VTE Prior VTE?: No VTE Risk Level:: Surgical - low VTE Device Contraindication: N/A - Device Ordered VTE Drug Contraindication: Treatment Not Indicated
--- NOTE | 2021-07-11 09:00 | PM.DS ---
DS: Providers Provider Date of Service: 07/12/21 Date of admission: 07/10/21 09:48 Primary care physician: ARIK Green Attending physician on admission: Kari Urban Attending physician on discharge: Billy Michaels DS: Diagnosis Discharge Diagnosis (1) Acute appendicitis: Status: Acute (2) S/P appendectomy: Status: Acute DS: Summary Hospital Course Hospital Course: BRIEF HPI: Zane Gonzalez is a 26 year old male who presented to the emergency department during the night with a 2 day history of abdominal pain.? The abdominal pain initially was diffuse.? He had some nausea and vomiting that became more severe over time.? The abdominal pain has localized to the right lower quadrant and is severe.? He does not report fever or chills.? He has not had similar problems in the past.? He has no urinary complaints. In the emergency department, white blood count was elevated at 16.8.? CT scan of the abdomen and pelvis was obtained and was consistent with acute appendicitis with appendicoliths and possible phlegmon. HOSPITAL COURSE: He was admitted to the surgical service for further treatment of the acute appendicitis. Treatment options were discussed and surgery, laparoscopic appendectomy with potential need to convert to open was recommended because of the relatively short time course and presence of appendicoliths. He wished to proceed and was added onto the OR schedule for later that day. On 07/10/21, a laparoscopic appendectomy was performed by Dr. Urban without complication. The mesoappendix was adherent to the right mesocolon and the appendix was adherent to the retroperitoneum. The patient tolerated the procedure well, completed routine recovery in PACU and was admitted to the medical/surgical floor for observation. The patient had an uncomplicated recovery course. On POD #1, he felt improved. His pain was controlled. He was clinically appearing well and was hemodynamically stable. He was reassessed later in the day but was having difficulty with pain control on just PO analgesics and therefore stayed overnight. The following morning he felt much improved and his pain was better controlled. He was reassessed later and his pain was controlled on PO analgesics. He was OOB without difficulty. He felt ready for discharge to home and was discharged on 07/12/21 in stable condition. Status at Discharge Functional status at discharge: independent ambulation Overall status at discharge: patient is progressing back to baseline Time Spent with Patient Time attestation: Total time spent providing and/or coordinating discharge services: Discharge coordination time: Less than 30 minutes Quality: Stroke Does the patient have a stroke diagnosis?: No Physical Exam Vital Signs: Vital Signs: Last Vital Signs Temp 97.5 F 07/11/21 07:20 Pulse 80 07/11/21 07:20 Resp 17 07/11/21 07:25 BP 124/59 L 07/11/21 07:20 Pulse Ox 96 07/11/21 07:20 BMI result Body Mass Index 39.6 Const: General: comfortable, no acute distress and alert Nutritional Appearance: well nourished Orientation/consciousness: patient oriented x3 Resp: Effort & Inspection: normal respiratory effort GI: Inspection: No distended and Yes incision (dressings clean, intact) Palpation (GI): Soft to palpation, Tenderness to palpation present (GI) (umbilical port site, RLQ) and no guarding Skin: General skin exam: no rashes or lesions noted Neuro: General: patient oriented x3 Extrem: General: Yes no clubbing, cyanosis or edema DS: Data Data Completed and Pending Pending studies at discharge: 07/10/21 13:30 Surgical [PTH] Routine Vermiform appendix, appendectomy:? Gangrenous appendicitis and periappendicitis. Discharge Plan Discharge Patient Disposition: Home, Self-Care Discharge Diagnosis: acute appendicitis s/p lap appy Referrals: Billy Adams FNP- [Primary Care Provider] - 1 Week Billy Michaels MD [Physician] - 1 Week Discharge Medications: New docusate sodium [Colace] 100 mg capsule 100 mg PO BID PRN (Reason: constipation) Qty: 30 RF: 0 Continued sertraline 100 mg tablet 150 mg PO BEDTIME RF: 0 Discharge Orders: Discharge Order (Routine); Ordered 07/12/21 Ordered By: Roro Jim Diet: advance to usual diet Activity on Discharge: No heavy lifting Stand Alone Forms: Patient Portal Discharge page, Work/School Release Activity Restrictions/Additional Instructions: If the incision area is tender, you may apply an ice pack for short intervals (No more than 20 minutes on, followed by at least 20 minutes off). Do not apply heat. Do not use creams, lotions, or topical antibiotics unless instructed to do so by your surgeon. These can cause infection or allergic reaction. Ok to shower. You have steri strips (small white cloth strips) covering your incision- these will fall off ~1 week. Follow up in office with Dr. Michaels in 1 week. ([phone]) Call Your Doctor If: -Your temperature exceeds 101.5? F -You experience excessive pain or swelling -You have an unexpected reaction to medication -You have excessive bleeding -You experience continued vomiting/nausea -Your incision begins to separate -Your incision shows signs of infection such as increased redness, swelling, excessive pain, drainage (light blood or clear fluid is normal) or heat Care Plan Goals: Return to baseline health and gradual return to activity following recovery period. Health Concerns: Acute appendicitis Plan of Treatment: S/p lap appy, discharge to home Assessment: Doing well post op
--- NOTE | 2021-07-11 11:15 | MHC.CM.PN ---
PT ADMITTED W/ACUTE APPENDICITIS AND S/P LAP APPENDECTOMY, PT REPORTS HE LIVES W/GF, IS INDEPENDENT W/ALL CARE, NO DME/HOME SERVICES, PT VERIFIES PCP IS CÉSAR ABDUL AND WAS EDUCATED ON AND COMPLETED A HCP NAMING [facility] [place] [phone] HIS HEALTH CARE AGENT W/NO ALTERNATE. D/C PLAN: HOME SELF-CARE W/OUPT FOLLOW-UP W/SURGEON, PT'S MOTHER AT BEDSIDE AND WILL TRANSPORT, POSSIBLE D/C TODAY.
[2021-07-11] MEDS: HYDROmorphone HCl 2 MG TABLET 1 MG PO (11:22)
[2021-07-11] MEDS: Ketorolac Tromethamine 30 MG/ML VIAL IVPUSH ×2 (13:59→20:00)
--- NOTE | 2021-07-11 14:52 | HO.POSTANES ---
Post Anesthesia Evaluation Post Anesthesia Evaluation Vital Signs: Vital Signs Temp Pulse Resp BP Pulse Ox 07/11/21 07:25 17 07/11/21 07:20 97.5 F 80 16 124/59 L 96 Anesthesia: General Endotracheal-GETA Mental Status: Awake Pain Control: Satisfactory Nausea/Vomiting: None Hydration: Adequate Anesthesia-Related Issues: No Anes. Related Issues
[2021-07-11 15:18] VITALS: BP 125/57; PULSE 77; RESP 16; TEMP 36.9; O2SAT 98
[2021-07-11] MEDS: HYDROmorphone HCl 2 MG TABLET PO (17:22)
[2021-07-11] MEDS: Sertraline HCL 50 MG TABLET 150 MG PO (21:44)
[2021-07-12] VITALS: BP 132/72; PULSE 64; RESP 16; TEMP 36.2; O2SAT 95
[2021-07-12 08:00] VITALS: BP 123/65; PULSE 71; RESP 18; TEMP 36.5; O2SAT 95
--- NOTE | 2021-07-12 08:29 | PM.PNGS ---
Subjective Subjective Date of Service: 07/12/21 <Roro Jim PA-C - Last Filed: 07/12/21 08:32> 07/12/21 <Billy Michaels MD - Last Filed: 07/12/21 09:41> Interval history: Had difficulty with pain control yesterday. Much improved with addition of ofirmev/ketorolac and increase in PO dilaudid. Tolerating solid diet. OOB without difficulty. Wants to see how he does with just PO analgesics prior to d/c. <Roro Jim PA-C - Last Filed: 07/12/21 08:32> Physical Exam Vital Signs: Vital Signs: Last Vital Signs Temp 97.7 F 07/12/21 08:00 Pulse 71 07/12/21 08:00 Resp 18 07/12/21 08:00 BP 123/65 07/12/21 08:00 Pulse Ox 95 07/12/21 08:00 BMI result Body Mass Index 39.6 <Roro Jim PA-C - Last Filed: 07/12/21 08:32> Const: General: comfortable, no acute distress and alert <Roro Jim PA-C - Last Filed: 07/12/21 08:32> Nutritional Appearance: well nourished <Roro Jim PA-C - Last Filed: 07/12/21 08:32> Orientation/consciousness: patient oriented x3 <Roro Jim PA-C - Last Filed: 07/12/21 08:32> Resp: Effort & Inspection: normal respiratory effort <Roro Jim PA-C - Last Filed: 07/12/21 08:32> GI: Inspection: No distended and Yes incision (clean) <SERGIO San Last Filed: 07/12/21 08:32> Palpation (GI): Soft to palpation, Tenderness to palpation present (GI) (incisional) and no guarding <SERGIO San Last Filed: 07/12/21 08:32> Skin: General skin exam: no rashes or lesions noted <SERGIO San Last Filed: 07/12/21 08:32> Neuro: General: patient oriented x3 <Roro Jim PA-C - Last Filed: 07/12/21 08:32> Extrem: General: Yes no clubbing, cyanosis or edema <Roro Jim PA-C - Last Filed: 07/12/21 08:32> Objective Data Active Medications Hydromorphone HCl (Hydromorphone Hcl 2 Mg Tablet) 2 mg PO Q3H PRN PRN Reason: Pain, Moderate (Pain Scale 4-6 Last Admin: 07/11/21 17:22 Dose: 2 mg Documented by: ROQUE Hydromorphone HCl (Hydromorphone Hcl 4 Mg Tablet) 4 mg PO Q4H PRN PRN Reason: Pain, Severe (Pain Scale 7-10) Acetaminophen (Ofirmev) 1,000 mg in 100 mls @ 400 mls/hr IV Q6H PRN PRN Reason: Pain, Moderate (Pain Scale 4-6 Last Infusion: 07/11/21 20:28 Dose: 0 mls/hr Documented by: CLARK Ketorolac Tromethamine (Ketorolac Tromethamine 30 Mg/Ml Vial) 30 mg IVPUSH Q6H PRN PRN Reason: Pain, Moderate (Pain Scale 4-6 Last Admin: 07/11/21 20:00 Dose: 30 mg Documented by: CLARK Morphine Sulfate (Morphine Sulfate 4 Mg/Ml Cartridge) 4 mg IVPUSH Q3H PRN; Protocol PRN Reason: Pain, severe Last Admin: 07/11/21 12:45 Dose: 4 mg Documented by: MEET Ondansetron HCl (Ondansetron Hcl 4 Mg/2 Ml Vial) 4 mg IVPUSH Q8H PRN PRN Reason: Nausea Last Admin: 07/10/21 16:18 Dose: 4 mg Documented by: ROQUE Pharmacy Consult (Consult Rx Perform Med Rec) 1 each MISCELLANE ONCE PRN PRN Reason: Consult order Sertraline HCl (Sertraline Hcl 50 Mg Tablet) 150 mg PO BEDTIME [facility] Last Admin: 07/11/21 21:44 Dose: 150 mg Documented by: CLARK <Roro Jim PA-C - Last Filed: 07/12/21 08:32> Labs CBC & Chem 7: : 07/10/21 07:00 07/10/21 07:00 <Roro Jim PA-C - Last Filed: 07/12/21 08:32> Procedures Date of Service Date of Service: 07/12/21 <Roro Jim PA-C - Last Filed: 07/12/21 08:32> Progress Note: A&P Assessment and plan (1) S/P appendectomy: Status: Acute <Roro Jim PA-C - Last Filed: 07/12/21 08:32> (2) Acute appendicitis: Status: Acute <Roro Jim PA-C - Last Filed: 07/12/21 08:32> Assessment and Plan: 26 year old male admitted with acute appendicitis now POD #2 s/p lap appy. He is doing better post operatively with better pain control. VSS. Abd exam benign with clean incisions, appropriate post op tenderness. Will reassess later this morning, if remains comfortable on just PO analgesics, stable for d/c to home. Patient comfortable with plan. Educated to f/u in office in [address] Michaels, no heavy lifting. <Roro Jim PA-C - Last Filed: 07/12/21 08:32> 26 year old male admitted with acute appendicitis now POD #2 s/p lap appy. He is doing better post operatively with better pain control. VSS. Abd exam benign with clean incisions, appropriate post op tenderness. Will reassess later this morning, if remains comfortable on just PO analgesics, stable for d/c to home. Patient comfortable with plan. Educated to f/u in office in [address] Michaels, no heavy lifting. Patient appears much more comfortable today, tolerating regular diet without nausea or vomiting. Agree with the above assessment plan. Possible discharge later today tolerating p.o. pain meds. <Billy Michaels MD - Last Filed: 07/12/21 09:41> Fall Risk Details Current Medications: Current Medications Hydromorphone HCl (Hydromorphone Hcl 2 Mg Tablet) 2 mg PO Q3H PRN PRN Reason: Pain, Moderate (Pain Scale 4-6 Last Admin: 07/11/21 17:22 Dose: 2 mg Documented by: Hydromorphone HCl (Hydromorphone Hcl 4 Mg Tablet) 4 mg PO Q4H PRN PRN Reason: Pain, Severe (Pain Scale 7-10) Acetaminophen (Ofirmev) 1,000 mg in 100 mls @ 400 mls/hr IV Q6H PRN PRN Reason: Pain, Moderate (Pain Scale 4-6 Last Infusion: 07/11/21 20:28 Dose: Infused Documented by: Ketorolac Tromethamine (Ketorolac Tromethamine 30 Mg/Ml Vial) 30 mg IVPUSH Q6H PRN PRN Reason: Pain, Moderate (Pain Scale 4-6 Last Admin: 07/11/21 20:00 Dose: 30 mg Documented by: Morphine Sulfate (Morphine Sulfate 4 Mg/Ml Cartridge) 4 mg IVPUSH Q3H PRN; Protocol PRN Reason: Pain, severe Last Admin: 07/11/21 12:45 Dose: 4 mg Documented by: Ondansetron HCl (Ondansetron Hcl 4 Mg/2 Ml Vial) 4 mg IVPUSH Q8H PRN PRN Reason: Nausea Last Admin: 07/10/21 16:18 Dose: 4 mg Documented by: Pharmacy Consult (Consult Rx Perform Med Rec) 1 each MISCELLANE ONCE PRN PRN Reason: Consult order Sertraline HCl (Sertraline Hcl 50 Mg Tablet) 150 mg PO BEDTIME [facility] Last Admin: 07/11/21 21:44 Dose: 150 mg Documented by: <Roro Jim PA-C - Last Filed: 07/12/21 08:32> Time Spent With Patient Time: Total time spent is greater than 50% in coordination of care (as documented) at patient's floor/unit and/or counseling patient: <Roro Jim PA-C - Last Filed: 07/12/21 08:32> Time with patient: 15 - 24 minutes <Roro Jim PA-C - Last Filed: 07/12/21 08:32> Quality Stroke Does the patient have a stroke diagnosis?: No <Roro Jim PA-C - Last Filed: 07/12/21 08:32> VTE Prior VTE?: No <Roro Jim PA-C - Last Filed: 07/12/21 08:32> VTE Risk Level:: Surgical - low <Roro Jim PA-C - Last Filed: 07/12/21 08:32> VTE Device Contraindication: N/A - Device Ordered <Roro Jim PA-C - Last Filed: 07/12/21 08:32> VTE Drug Contraindication: Treatment Not Indicated <Roro Jim PA-C - Last Filed: 07/12/21 08:32>
--- NOTE | 2021-07-12 12:23 | MHC.CM.PN ---
EMR REVIEWED, PT REPORTS PAIN IMPROVED HOWEVER STILL RECEIVING PO DILAUDID, TOLERATING REGULAR DIET, AMBULATING W/OUT ISSUE, POSSIBLE D/C TODAY HOME NO SERVICES W/FAMILY FOR TRANSPORT.
[2021-07-12 15:11] VITALS: BP 136/83; PULSE 74; RESP 16; TEMP 36.6; O2SAT 95
== END 2021-07-12 16:57 | disposition home or self-care (01) | DRG 225 ==
LOC: HO.ED 09:26 → HO.EDOVER 09:54 → HO.S3 15:08
PROVIDERS: Student in an Organized Health Care Education/Training Program; Admitting Provider Surgery; Emergency Provider Emergency Medicine; PCP Nurse Practitioner Family; Visit Provider Surgery
PROC: 0DTJ4ZZ Resection of Appendix, Percutaneous Endoscopic Approach (ICD-10-PCS; CPT 44970; principal; 2021-07-10 13:20)
DX: K35.30 Acute appendicitis with localized peritonitis, without perforation or gangrene (principal); K38.1 Appendicular concretions; Z20.822 Contact with and (suspected) exposure to COVID-19; Z79.899 Other long term (current) drug therapy
CPT/HCPCS: 36415; 74177; 80053; 81001; 83690; 85025; 87635; 88304; 96361; 96365; 96375; 96376; 99024; 99285; J0131; J1100; J1170; J1885; J2250; J2270; J2370; J2405; J2543; J2550; J3010; Q9967

== ENCOUNTER → 2021-07-18 14:25 | Outpatient (BNVA) | payer BC, SELFPAY | PROVIDERS: PCP Nurse Practitioner Family; Referring Provider Nurse Practitioner Family; Visit Provider Surgery ==

== ENCOUNTER 2021-07-23 13:08 | Outpatient (REF) | payer BC, SELFPAY ==
--- NOTE | ~2021-07-23 | CT_ITS ---
EXAMINATION: CT ABDOMEN AND PELVIS WITH CONTRAST CLINICAL INFORMATION: Postop appendicectomy. Status post laparoscopic appendicectomy on 07/10/2021. Postop pain and vomiting. COMPARISON: CT of the abdomen and pelvis done on 07/10/2021. TECHNIQUE: Multidetector volumetric images were obtained from the superior aspect of the liver through the pubic symphysis following administration 85 mL of Omnipaque 350 intravenous contrast. Sagittal and coronal reformatted images were obtained on the technologist's workstation. Oral contrast: No This CT examination was performed using dose optimization techniques as appropriate, variously including the following: *Automated exposure control *Adjustment of mA and/or kV according to patient size (this includes techniques or standardized protocols for targeted exams where dose is matched to indication/reason for exam; i.e. extremities or head) *Use of iterative reconstruction technique DLP: 582 mGy-cm FINDINGS:. Also LUNG BASES: The visualized lung bases are unremarkable. LIVER, GALLBLADDER, AND BILIARY TREE: The liver is normal in size, shape, and attenuation. No focal hepatic lesion or biliary ductal dilatation is present. The gallbladder is unremarkable with no evidence of radiopaque gallstones, gallbladder wall thickening, or obvious pericholecystic inflammatory changes. PANCREAS: Unremarkable. SPLEEN: Persistent stable mild splenomegaly measuring approximately 15 cm at its maximum craniocaudal dimension. ADRENAL GLANDS: Unremarkable. KIDNEYS AND URETERS: Slightly lobulated surface of both kidneys is noted, similar to prior study. Otherwise unremarkable. No change. BLADDER: Suboptimally distended. Grossly unremarkable. GASTROINTESTINAL TRACT: Postsurgical changes of appendicectomy is noted at the right lower abdomen. At the site of the operative bed, there is a complex fluid collection identified measures 4.3 x 3.6 cm (485:6 and 33:4). This fluid collection appears to be tracking along the posterior superior retrocecal region into an ellipsoidal thick walled fluid collection seen best on the coronal projection (44:4), measures approximately 5.2 x 3.3 x 2.9 cm. Significant inflammatory stranding is noted within and around the surgical bed. Specific note is made of multiple pathologically enlarged abnormal adjacent mesenteric lymph nodes (42:4). The remainder of the large bowel, small bowel loops and stomach otherwise appears decompressed. ABDOMINAL WALL: No significant hernia is appreciated. LYMPH NODES: Multiple pathologically enlarged right midabdominal mesenteric lymph nodes are noted as already described. There are no pathologically enlarged retroperitoneal, pelvic or groin lymphadenopathy seen. VASCULAR: Unremarkable. PELVIC VISCERA: There is no pelvic mass present. No evidence of any free fluid and/or free air. OSSEOUS STRUCTURES: No suspicious focal abnormality. CT/CT abdomen pelvis w con IMPRESSION: 1. Abnormal CT scan of the abdomen and pelvis showing postsurgical changes of interval appendicectomy since the prior study dated 07/10/2021. Interval development of 2 adjacent/bilobed/communicating complex fluid collection is identified within the surgical bed which is also extending along the superior posterior aspect of the right mid abdomen posterior to the cecum and adjacent ascending colon. The collection at the surgical bed measures 4.3 x 3.6 cm while the collection which is extending posterosuperiorly measures 5.2 x 3.3 cm. Differential diagnostic consideration would include phlegmon versus evolving abscess. 2. Pathologically enlarged adjacent mesenteric lymphadenopathy, appear more pronounced since prior study dated 07/10/2021. This critical result was discussed with Ailyn Adams NP at 4:43 PM on 07/23/2021 and it was ascertained that the content and urgency of the report was understood at the time of direct communication.
[2021-07-23 14:04] LABS: MANUAL DIFF FLAG NO
[2021-07-23 14:17] LABS: Basophils Percent Auto 0.2 % (0-2); Eosinophils Percent Auto 0.1 % (0-4); Hemoglobin 14.9 g/dl (14.0-18.0); Imm Gran Abs Auto 0.09 X10*3/uL (0.00-0.03); Imm Gran Pct Auto 0.6 % (0.0-0.4); Lymphocytes Absolute Auto 0.8 X10*3/uL (1.2-4.9); Lymphocytes Percent Auto 4.9 % (20-40); Mean Corpuscular HGB Conc 35.5 g/dl (31.0-36.0); Mean Corpuscular Hemoglobin 32.3 pg (27.0-33.0); Mean Corpuscular Volume 91.1 fL (80.0-98.0); Mean Platelet Volume 8.8 fL (9.4-12.4); Monocytes Absolute Auto 1.3 X10*3/uL (0.1-1.2); Monocytes Percent Auto 8.1 % (2-11); Neutrophils Absolute Auto 14.1 x10*3/uL (2.0-8.3); Neutrophils Percent Auto 86.1 % (45-73); Platelet Count 463 X10*3/uL (160-400); Red Blood Count 4.61 X10*6/uL (4.60-5.80); Red Cell Distribution Width 11.1 % (11.0-16.0); White Blood Count 16.3 X10*3/uL (4.8-10.8)
[2021-07-23] MEDS: iohexoL 350 MG/ML 100 ML INFUS..BTL IV (15:45)
== END 2021-07-23 13:09 | disposition home or self-care (01) ==
LOC: HO.LAB 13:08
PROVIDERS: PCP Nurse Practitioner Family; Referring Provider Nurse Practitioner Family; Visit Provider Surgery
DX: T81.49XA Infection following a procedure, other surgical site, initial encounter (principal); Z90.49 Acquired absence of other specified parts of digestive tract
CPT/HCPCS: 36415; 74177; 85025; Q9967

== ENCOUNTER 2021-07-23 15:25 | Inpatient (IN) | payer BC, SELFPAY ==
--- NOTE | ~2021-07-23 | CT_ITS ---
PROCEDURE: CT GUIDED ASPIRATION, FINE NEEDLE, WITH IMAGE GUIDANCE CLINICAL INFORMATION: Right lower quadrant abscess. Status post laparoscopic appendectomy. COMPARISON: CT abdomen pelvis 07/23/2021 TECHNIQUE: Following explaining CT fluoroscopy-guided right lower quadrant abscess aspiration and drainage procedure, benefits and risks, a written consent was obtained. Patient was placed supine on CT fluoroscopy table and preliminary CT imaging was obtained the right lower quadrant. An optimal site was selected, marked and cleaned in the usual sterile manner with 2% chlorhexidine solution. 1% lidocaine was injected at puncture site. Through a small skin incision a 5-Welsh long Yueh catheter was inserted from the skin into the right lower quadrant abscess collection. After observing fluid return the stylet was removed and syringe attached to the Yueh catheter and aspiration performed. After obtaining all possible normal fluid return and nothing remaining on repeat CT imaging, the Yueh catheter was withdrawn and complete hemostasis achieved at puncture site. Repeat CT imaging obtained through the right lower quadrant. Sterile dressing applied postprocedure. Patient tolerated the procedure extremely well. Conscious sedation was utilized during the exam. Approximately 2 mcg of Versed and 50 mg of fentanyl was used during the exam and patient monitored by the IR nurse and the radiologist for [address] examination was performed using dose optimization techniques as appropriate, variously including the following: *Automated exposure control *Adjustment of mA and/or kV according to patient size (this includes techniques or standardized protocols for targeted exams where dose is matched to indication/reason for exam; i.e. extremities or head) *Use of iterative reconstruction technique DLP: 549 mGy-cm FINDINGS: CT imaging reveals persistent right lower quadrant slightly ill-defined collection, minimally improved compared to previous study. Approximately 8.5 mL of pus was aspirated from the right lower quadrant. All of this was sent to lab for culture, sensitivity, Gram stain and non aerobic evaluation. CT/CT guided needle placement IMPRESSION: Successful CT fluoroscopy-guided right lower quadrant abscess aspiration performed. Fluid collected was sent to lab for microbiology.
--- NOTE | ~2021-07-23 | CT_ITS ---
PROCEDURE: CT GUIDED ASPIRATION, FINE NEEDLE, WITH IMAGE GUIDANCE CLINICAL INFORMATION: Right lower quadrant abscess. Status post laparoscopic appendectomy. COMPARISON: CT abdomen pelvis 07/23/2021 TECHNIQUE: Following explaining CT fluoroscopy-guided right lower quadrant abscess aspiration and drainage procedure, benefits and risks, a written consent was obtained. Patient was placed supine on CT fluoroscopy table and preliminary CT imaging was obtained the right lower quadrant. An optimal site was selected, marked and cleaned in the usual sterile manner with 2% chlorhexidine solution. 1% lidocaine was injected at puncture site. Through a small skin incision a 5-Mongolian long Yueh catheter was inserted from the skin into the right lower quadrant abscess collection. After observing fluid return the stylet was removed and syringe attached to the Yueh catheter and aspiration performed. After obtaining all possible normal fluid return and nothing remaining on repeat CT imaging, the Yueh catheter was withdrawn and complete hemostasis achieved at puncture site. Repeat CT imaging obtained through the right lower quadrant. Sterile dressing applied postprocedure. Patient tolerated the procedure extremely well. Conscious sedation was utilized during the exam. Approximately 2 mcg of Versed and 50 mg of fentanyl was used during the exam and patient monitored by the IR nurse and the radiologist for [address] examination was performed using dose optimization techniques as appropriate, variously including the following: *Automated exposure control *Adjustment of mA and/or kV according to patient size (this includes techniques or standardized protocols for targeted exams where dose is matched to indication/reason for exam; i.e. extremities or head) *Use of iterative reconstruction technique DLP: 549 mGy-cm FINDINGS: CT imaging reveals persistent right lower quadrant slightly ill-defined collection, minimally improved compared to previous study. Approximately 8.5 mL of pus was aspirated from the right lower quadrant. All of this was sent to lab for culture, sensitivity, Gram stain and non aerobic evaluation. CT/CT guided aspiration IMPRESSION: Successful CT fluoroscopy-guided right lower quadrant abscess aspiration performed. Fluid collected was sent to lab for microbiology.
[2021-07-23 16:05] VITALS: BP 178/82; PULSE 93; RESP 18; TEMP 36.6; O2SAT 99; BMI 34.9
[2021-07-23 20:53] VITALS: BP 136/83; PULSE 90; RESP 18; TEMP 37; O2SAT 97
[2021-07-23] MEDS: HYDROmorphone HCl 0.5 MG/0.5 ML SYRINGE IVPUSH (21:27)
--- NOTE | 2021-07-23 21:27 | ED_ITS ---
HPI - Abdominal Pain General Chief Complaint: Abdominal Pain Stated Complaint: abscess Time Seen by Provider: 07/23/21 21:12 History of Present Illness HPI narrative: Patient 26-year-old male presents today with having abdominal pain. Has a history of appendectomy. Patient had a laparoscopic appendectomy done 2 weeks ago. Was doing well the 1st week. During the 2nd week patient started developing pain 5 days prior to coming to ED. Having increasing pain. Patient went to follow-up with his surgeon. a CT scan was done on an outpatient basis. Per patient an abscess was found. Patient is told to come to the emergency department. No fever no chills. No cough no congestion or upper respiratory symptoms. No diaphoresis. Patient from home. Related Data Home Medications Medication Instructions Recorded Confirmed sertraline 100 mg tablet 150 mg PO BEDTIME tab 02/05/21 07/23/21 Previous Rx's Medication Instructions Recorded docusate sodium 100 mg capsule 100 mg PO BID PRN #30 cap 07/12/21 (Colace) hydromorphone 2 mg tablet 2 mg PO Q6H PRN #15 tab 07/12/21 (Dilaudid) Allergies Allergy/AdvReac Type Severity Reaction Status Date / Time No Known Allergies Allergy Verified 02/05/21 09:32 Review of Systems Review of Systems Positive abdominal pain no nausea no vomiting no focal weakness all system reviewed otherwise negative Physical Exam Vital Signs: Vital Signs: Last Vital Signs Temp 98.6 F 07/23/21 20:53 Pulse 90 07/23/21 20:53 Resp 18 07/23/21 20:53 BP 136/83 07/23/21 20:53 Pulse Ox 97 07/23/21 20:53 BMI result Body Mass Index 34.9 Appearance: Alert. Oriented X3. No acute distress. Eyes: Pupils equal, round and reactive to light. ENT: Pharynx normal. Neck: Normal inspection. Neck supple. No lymph nodes noted. No crepitus CVS: Normal heart rate and rhythm. Pulses normal. Normal S1 and S2 Respiratory: No respiratory distress. Breath sounds normal. No Wheezing. No rales Abdomen: positive right lower quadrant tenderness no reboundNo rigidity. No distention. good BS x4 Skin: Skin warm and dry. Normal skin color. Normal skin turgor. Extremities: No lower extremity edema. Neurovascular intact to all extremities. No Lacerations. No Rash Neuro: Oriented X 3. No motor deficit. No sensory deficit. Moving all extermities. No slurred speech MDM - Abdominal Pain MDM Narrative Medical decision making narrative: white count elevated CT scan positive for possible abscess. Patient's case discussed with surgery. Once patient be started on Zosyn. Patient is to be admitted. Currently in stable condition. Patient Informed of the results. Discharge Plan Discharge Clinical Impression: Abscess Patient Disposition: Admitted As Inpatient Prescriptions: No Action docusate sodium [Colace] 100 mg capsule 100 mg PO BID PRN (Reason: constipation) Qty: 30 RF: 0 hydromorphone [Dilaudid] 2 mg tablet 2 mg PO Q6H PRN (Reason: pain (scale score 7-10)) Qty: 15 RF: 0 sertraline 100 mg tablet 150 mg PO BEDTIME RF: 0 PMFSH Past Medical History Attestation statement: The following information was validated with the patient. Surgical History S/P appendectomy (07/10/21) Family History Family History Father No problems noted. Mother No problems noted. 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
[2021-07-23] MEDS: Piperacillin Sodium/Tazobactam 4.5 GM in 0.9 % Sodium Chloride 100 ML IV (21:34)
--- NOTE | 2021-07-23 21:35 | P.HPGS_ITS ---
History of Present Illness History of Present Illness Date of Service: 07/23/21 Chief complaint: abscess Narrative: Zane Gonzalez is a 26 year old male one week s/p laparoscopic appendectomy presenting with increased abdominal pain associated with nausea and vomiting. He was evaluate in the office this afternoon and found to be tender in the right lower quadrant with localized rebound tenderness. WBC was noted to be [address] abdomen and pelvis revealed a right lower quadrant abscess. He is admitted for IV antibiotics and possible IR drainage. Review of Systems Constitutional: Constitutional: Denies chills, Denies fever(s), Denies headache(s) and Denies poor appetite ENT: Denies dizziness and Denies headache(s) Cardiovascular: Cardiovascular: Denies chest pain, Denies rapid heart rate, Denies palpitations and Denies slow heart rate Respiratory: Respiratory: Denies chest congestion, Denies cough, Denies pain on inspiration and Denies wheezing Gastrointestinal: Gastrointestinal: Reports abdominal pain, Denies bloating, Denies change in stool character, Denies constipation, Denies diarrhea, Reports nausea, Reports vomiting and Denies hematemesis Musculoskeletal: Musculoskeletal: Denies back pain, Denies arthralgias, Denies joint swelling and Denies numbness Integumentary/Breasts: Skin/Breast: Denies change in pigmentation, Denies erythema and Denies rash Neurologic: Denies dizziness, Denies headache(s) and Denies numbness Psychiatric: Psychiatric: Denies anxiety and Denies depression Endocrine: Endocrine: Denies palpitations Hematologic/Lymphatic: Hematologic/Lymphatic: Denies easy bleeding, Denies easy bruising and Denies lymphadenopathy Allergic/Immunologic: Allergic/Immunologic: Denies wheezing PMFSH Family History Family History Father No problems noted. Mother No problems noted. 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 [employer] Meds Allergies Allergy/AdvReac Type Severity Reaction Status Date / Time No Known Allergies Allergy Verified 02/05/21 09:32 Active Medications: Current Medications Piperacillin Sod/Tazobactam (Sod 4.5 gm/ Sodium Chloride) 100 mls @ 200 mls/hr IV ONCE ONE Stop: 07/23/21 21:50 Home Medications Medication Instructions Recorded Confirmed Last Taken Type sertraline 100 mg tablet 150 mg PO BEDTIME tab 02/05/21 07/23/21 06/10/21 History Physical Exam Vital Signs: Vital Signs: Last Vital Signs Temp 98.6 F 07/23/21 20:53 Pulse 90 07/23/21 20:53 Resp 18 07/23/21 20:53 BP 136/83 07/23/21 20:53 Pulse Ox 97 07/23/21 20:53 BMI result Body Mass Index 34.9 Const: General: cooperative and no acute distress Nutritional Appearance: well nourished Orientation/consciousness: patient oriented x3 Limitations: no limitations HENMT: Head: Yes normocephalic Resp: Effort & Inspection: normal respiratory effort and no respiratory distress GI: Inspection: Yes normal to inspection and Yes incision (C,D, I) Palpati on (GI): Soft to palpation and Tenderness to palpation present (GI) in the RUQ, at McBurney's point and with rebound tenderness Rectal Exam - Male: Yes deferred Skin: General skin exam: no rashes or lesions noted, no ecchymosis, no erythema and no induration Neuro: General: patient oriented x3 Extrem: General: Yes no clubbing, cyanosis or edema Assessment and Plan (1) Abscess: Status: Acute (2) S/P appendectomy: Status: Acute 26 year old male s/p lap appy found to have a right lower quadrant abscess, admitted for IV antibiotics and IR drainage of abscess. NPO after midnight Recheck labs in AM Quality Stroke Does the patient have a stroke diagnosis?: No VTE Prior VTE?: No VTE Risk Level:: Surgical - low VTE Device Contraindication: N/A - Device Ordered VTE Drug Contraindication: Treatment Not Indicated Procedures Date of Service Date of Service: 07/23/21
[2021-07-23 21:50] LABS: COVID-19 Test Negative (Negative)
[2021-07-23] MEDS: Dextrose 5 % and Lactated Ring 1,000 ML 125 ML IVCONT (22:57)
[2021-07-23 23:36] VITALS: BP 129/66; PULSE 83; RESP 16; O2SAT 97
[2021-07-24] VITALS (7 sets, daily range): BP systolic 113–140; BP diastolic 60–70; PULSE 60–67; RESP 14–20; TEMP 36.3–36.8; O2SAT 97–99
[2021-07-24] MEDS: HYDROmorphone HCl 0.5 MG/0.5 ML SYRINGE IVPUSH ×5 (00:11→19:53)
[2021-07-24] MEDS: Piperacillin Sodium/Tazobactam 3.375 GM in 0.9 % Sodium Chloride 50 ML IV ×3 (03:00→18:55)
[2021-07-24] MEDS: Dextrose 5 % and Lactated Ring 1,000 ML 125 ML IVCONT ×2 (07:49→16:34)
--- NOTE | 2021-07-24 07:53 | PC.NURSE ---
Iv fluids late as 5 percent dextrose and lactated ringers were not in stock. Central supply sent them up finally.
[2021-07-24 08:32] LABS: MANUAL DIFF FLAG NO
[2021-07-24 08:39] LABS: Basophils Percent Auto 0.5 % (0-2); Eosinophils Absolute Auto 0.1 X10*3/uL (0.0-0.4); Eosinophils Percent Auto 0.8 % (0-4); Hemoglobin 13.1 g/dl (14.0-18.0); Imm Gran Abs Auto 0.03 X10*3/uL (0.00-0.03); Imm Gran Pct Auto 0.5 % (0.0-0.4); Lymphocytes Absolute Auto 0.8 X10*3/uL (1.2-4.9); Lymphocytes Percent Auto 12.7 % (20-40); Mean Corpuscular HGB Conc 34.5 g/dl (31.0-36.0); Mean Corpuscular Volume 92.7 fL (80.0-98.0); Monocytes Absolute Auto 0.8 X10*3/uL (0.1-1.2); Monocytes Percent Auto 12.4 % (2-11); Neutrophils Absolute Auto 4.8 x10*3/uL (2.0-8.3); Neutrophils Percent Auto 73.1 % (45-73); Platelet Count 395 X10*3/uL (160-400); Red Cell Distribution Width 11.1 % (11.0-16.0); White Blood Count 6.6 X10*3/uL (4.8-10.8)
--- NOTE | 2021-07-24 08:43 | PC.NURSE ---
dr brower at bedside pt aware of plan of care.
--- NOTE | 2021-07-24 08:52 | MHC.CM.PN ---
pt lives c his s.o. in their home. he reports that he is independent in his care. he drives a car and works for the [employer]. his s.o. will provide transportation [place]. pt tells me he may need a note for his employer as today was the day he was suppose to report back to work. pt denies the need for vna. dc plan is home no svcs. cm to cont. to follow.
[2021-07-24 08:54] LABS: INTERNATIONAL NORM RATIO 1.4 (0.9-1.1); Prothrombin Time 15.7 SEC (9.9-13.0)
[2021-07-24 08:57] LABS: Anion Gap 15 (12-20); Blood Urea Nitrogen 11 mg/dL (9-16); Carbon Dioxide 25 mmol/L (22-29); Chloride 103 mmol/L (96-108); Creatinine Clr Calc Pharmacy 163.2; Estimated Glomerular Filt Rate > 60; Glucose Random 110 mg/dL (60-115); Potassium 3.9 mmol/L (3.3-5.1); Sodium 139 mmol/L (135-145)
--- NOTE | 2021-07-24 11:31 | P.PNGS_ITS ---
Subjective Subjective Date of Service: 07/24/21 <Roro Jim PA-C - Last Filed: 07/24/21 11:34> 07/24/21 <Billy Michaels MD - Last Filed: 07/24/21 13:16> Interval history: Still having pain. Awaiting drainage. <Roro Jim PA-C - Last Filed: 07/24/21 11:34> Physical Exam Vital Signs: Vital Signs: Last Vital Signs Temp 98.1 F 07/24/21 10:32 Pulse 66 07/24/21 10:32 Resp 18 07/24/21 10:32 BP 113/60 07/24/21 10:32 Pulse Ox 98 07/24/21 10:32 BMI result Body Mass Index 34.9 <Roro Jim PA-C - Last Filed: 07/24/21 11:34> Const: General: no acute distress, well developed and alert <Roro Jim PA-C - Last Filed: 07/24/21 11:34> Orientation/consciousness: patient oriented x3 <Roro Jim PA-C - Last Filed: 07/24/21 11:34> Resp: Effort & Inspection: normal respiratory effort <Roro Jim PA-C - Last Filed: 07/24/21 11:34> Skin: General skin exam: no rashes or lesions noted <Roro Jim PA-C - Last Filed: 07/24/21 11:34> Neuro: General: patient oriented x3 <Roro Jim PA-C - Last Filed: 07/24/21 11:34> Objective Data Active Medications Acetaminophen (Acetaminophen 325 Mg Tablet) 650 mg PO Q6H PRN PRN Reason: Pain, Mild (Pain Scale 1-3) Hydromorphone HCl (Hydromorphone Hcl 0.5 Mg/0.5 Ml Syringe) 0.5 mg IVPUSH Q3H PRN; Protocol PRN Reason: Pain, Severe (Pain Scale 7-10) Last Admin: 07/24/21 08:41 Dose: 0.5 mg Documented by: ELLAOC Dextrose/Lactated Ringer's (D5lr) 1,000 mls @ 125 mls/hr IVCONT .Q8H [facility] Last Admin: 07/24/21 07:49 Dose: 125 mls/hr Documented by: ERIN Piperacillin Sod/Tazobactam (Sod 3.375 gm/ Sodium Chloride) 50 mls @ 100 mls/hr IV Q6H [facility] Last Infusion: 07/24/21 03:30 Dose: 0 mls/hr Documented by: ERIN Ondansetron HCl (Ondansetron Hcl 4 Mg/2 Ml Vial) 4 mg IVPUSH Q8H PRN PRN Reason: Nausea and Vomiting Oxycodone HCl (Oxycodone Hcl Immed Release 5 Mg Tablet) 5 mg PO Q6H PRN PRN Reason: Pain, Moderate (Pain Scale 4-6 Pharmacy Consult (Consult Rx Perform Med Rec) 1 each MISCELLANE ONCE PRN PRN Reason: Consult order Sertraline HCl (Sertraline Hcl 50 Mg Tablet) 150 mg PO BEDTIME [facility] Zolpidem Tartrate (Zolpidem Tartrate 5 Mg Tablet) 5 mg PO BEDTIME PRN PRN Reason: Insomnia <Roro Jim PA-C - Last Filed: 07/24/21 11:34> Labs CBC & Chem 7: : 07/24/21 08:03 07/24/21 08:03 <Roro Jim PA-C - Last Filed: 07/24/21 11:34> Labs: Laboratory Results - last 24 hr 07/23/21 07/24/21 07/24/21 21:28 08:03 08:03 MCV 92.7 MCH 32.0 MCHC 34.5 RDW 11.1 Plt Count 395 MPV 9.0 L Immature Gran % (Auto) 0.5 H Neut % (Auto) 73.1 H Lymph % (Auto) 12.7 L Angelina % (Auto) 12.4 H Eos % (Auto) 0.8 Baso % (Auto) 0.5 Lymph # (Auto) 0.8 L Angelina # (Auto) 0.8 Eos # (Auto) 0.1 Baso # (Auto) 0.0 Abs Immat Gran (auto) 0.03 Absolute Neuts (auto) 4.8 Absolute Nucleated RBC 0.000 Nucleated RBC % (auto) 0.0 PT 15.7 H INR 1.4 H Anion Gap Estim Creat Clear Calc Estimated GFR Random Glucose Calcium COVID-19 (TENA) Negative COVID-19 Clin Com See Note 07/24/21 08:03 MCV MCH MCHC RDW Plt Count MPV Immature Gran % (Auto) Neut % (Auto) Lymph % (Auto) Angelina % (Auto) Eos % (Auto) Baso % (Auto) Lymph # (Auto) Angelina # (Auto) Eos # (Auto) Baso # (Auto) Abs Immat Gran (auto) Absolute Neuts (auto) Absolute Nucleated RBC Nucleated RBC % (auto) PT INR Anion Gap 15 Estim Creat Clear Calc 163.2 Estimated GFR > 60 Random Glucose 110 Calcium 9.0 D COVID-19 (TENA) COVID-19 Clin Com <Roro Jim PA-C - Last Filed: 07/24/21 11:34> Procedures Date of Service Date of Service: 07/24/21 <Roro Jim PA-C - Last Filed: 07/24/21 11:34> Progress Note: A&P Assessment and plan (1) S/P appendectomy: Status: Acute <Roro Jim PA-C - Last Filed: 07/24/21 11:34> (2) Abscess: Status: Acute <SERGIO San Last Filed: 07/24/21 11:34> Assessment and Plan: 26 year old male s/p lap appy 2 weeks ago found to have a right lower quadrant abscess. He was admitted for IV antibiotics and IR drainage of abscess. He is awaiting the drainage this morning. VSS. WBC normalized. Continue IV antibiotics, IVF, NPO status, pain control. <Roro Jim PA-C - Last Filed: 07/24/21 11:34> 26 year old male s/p lap appy 2 weeks ago found to have a right lower quadrant abscess. He was admitted for IV antibiotics and IR drainage of abscess. He is awaiting the drainage this morning. VSS. WBC normalized. Continue IV antibiotics, IVF, NPO status, pain control. Patient continues to have abdominal pain but denies nausea or vomiting. Examination is unchanged with some tenderness in the right lower quadrant. WBC has returned to normal. Discussed with Dr. Germain. Collection appears smaller today. He will attempt aspiration for culture. Continue Zosyn. Restart diet following procedure. <Billy Michaels MD - Last Filed: 07/24/21 13:16> Fall Risk Details Current Medications: Current Medications Acetaminophen (Acetaminophen 325 Mg Tablet) 650 mg PO Q6H PRN PRN Reason: Pain, Mild (Pain Scale 1-3) Hydromorphone HCl (Hydromorphone Hcl 0.5 Mg/0.5 Ml Syringe) 0.5 mg IVPUSH Q3H PRN; Protocol PRN Reason: Pain, Severe (Pain Scale 7-10) Last Admin: 07/24/21 08:41 Dose: 0.5 mg Documented by: Dextrose/Lactated Ringer's (D5lr) 1,000 mls @ 125 mls/hr IVCONT .Q8H [facility] Last Admin: 07/24/21 07:49 Dose: 125 mls/hr Documented by: Piperacillin Sod/Tazobactam (Sod 3.375 gm/ Sodium Chloride) 50 mls @ 100 mls/hr IV Q6H [facility] Last Infusion: 07/24/21 03:30 Dose: Infused Documented by: Ondansetron HCl (Ondansetron Hcl 4 Mg/2 Ml Vial) 4 mg IVPUSH Q8H PRN PRN Reason: Nausea and Vomiting Oxycodone HCl (Oxycodone Hcl Immed Release 5 Mg Tablet) 5 mg PO Q6H PRN PRN Reason: Pain, Moderate (Pain Scale 4-6 Pharmacy Consult (Consult Rx Perform Med Rec) 1 each MISCELLANE ONCE PRN PRN Reason: Consult order Sertraline HCl (Sertraline Hcl 50 Mg Tablet) 150 mg PO BEDTIME [facility] Zolpidem Tartrate (Zolpidem Tartrate 5 Mg Tablet) 5 mg PO BEDTIME PRN PRN Reason: Insomnia <Roro Jim PA-C - Last Filed: 07/24/21 11:34> Time Spent With Patient Time: Total time spent is greater than 50% in coordination of care (as documented) at patient's floor/unit and/or counseling patient: <Roro Jim PA-C - Last Filed: 07/24/21 11:34> Time with patient: less than 15 minutes <Roro Jim PA-C - Last Filed: 07/24/21 11:34> Quality Stroke Does the patient have a stroke diagnosis?: No <Roro Jim PA-C - Last Filed: 07/24/21 11:34> VTE Prior VTE?: No <Roro Jim PA-C - Last Filed: 07/24/21 11:34> VTE Risk Level:: Surgical - low <Roro Jim PA-C - Last Filed: 07/24/21 11:34> VTE Device Contraindication: N/A - Device Ordered <Roro Jim PA-C - Last Filed: 07/24/21 1 1:34> VTE Drug Contraindication: Treatment Not Indicated <Roro Jim PA-C - Last Filed: 07/24/21 11:34>
--- NOTE | 2021-07-24 12:03 | PC.NURSE ---
9am Zosyn not administered, this RN assumed care of the PT at 11AM informed pharmacy and documented against medication
[2021-07-24] MEDS: Lidocaine HCl 1 % MPF 5 ML VIAL 4 ML SUBCUT (13:52)
--- NOTE | 2021-07-24 15:40 | PC.NURSE ---
12PM Zosyn infused late as pt was in IR for a procedure
[2021-07-24] MEDS: Sertraline HCL 50 MG TABLET 150 MG PO (21:25)
[2021-07-25] VITALS (7 sets, daily range): BP systolic 135–148; BP diastolic 62–84; PULSE 60–74; RESP 15–18; TEMP 36.6–36.8; O2SAT 97–98
[2021-07-25] MEDS: Dextrose 5 % and Lactated Ring 1,000 ML 125 ML IVCONT (02:05)
[2021-07-25] MEDS: HYDROmorphone HCl 0.5 MG/0.5 ML SYRINGE IVPUSH ×5 (02:49→20:28)
[2021-07-25] MEDS: Piperacillin Sodium/Tazobactam 3.375 GM in 0.9 % Sodium Chloride 50 ML IV ×5 (06:14→23:49)
--- NOTE | 2021-07-25 07:46 | P.PNGS_ITS ---
Subjective Subjective Date of Service: 07/25/21 Interval history: s/p ct guided abscess aspiration yesterday, resting comfortably. Physical Exam Vital Signs: Vital Signs: Last Vital Signs Temp 97.8 F 07/24/21 22:33 Pulse 62 07/24/21 22:33 Resp 15 07/25/21 06:10 BP 135/70 07/24/21 22:33 Pulse Ox 97 07/24/21 22:33 BMI result Body Mass Index 34.9 Const: General: no acute distress Nutritional Appearance: well nourished Limitations: no limitations Resp: Effort & Inspection: normal respiratory effort GI: Inspection: Yes normal to inspection Extrem: General: No edema Objective Data Active Medications Acetaminophen (Acetaminophen 325 Mg Tablet) 650 mg PO Q6H PRN PRN Reason: Pain, Mild (Pain Scale 1-3) Hydromorphone HCl (Hydromorphone Hcl 0.5 Mg/0.5 Ml Syringe) 0.5 mg IVPUSH Q3H PRN; Protocol PRN Reason: Pain, Severe (Pain Scale 7-10) Last Admin: 07/25/21 02:49 Dose: 0.5 mg Documented by: LUIS A Piperacillin Sod/Tazobactam (Sod 3.375 gm/ Sodium Chloride) 50 mls @ 100 mls/hr IV Q6H [facility] Last Admin: 07/25/21 06:14 Dose: 100 mls/hr Documented by: LUIS A Ondansetron HCl (Ondansetron Hcl 4 Mg/2 Ml Vial) 4 mg IVPUSH Q8H PRN PRN Reason: Nausea and Vomiting Oxycodone HCl (Oxycodone Hcl Immed Release 5 Mg Tablet) 5 mg PO Q6H PRN PRN Reason: Pain, Moderate (Pain Scale 4-6 Pharmacy Consult (Consult Rx Perform Med Rec) 1 each MISCELLANE ONCE PRN PRN Reason: Consult order Sertraline HCl (Sertraline Hcl 50 Mg Tablet) 150 mg PO BEDTIME [facility] Last Admin: 07/24/21 21:25 Dose: 150 mg Documented by: ESTEFANY Zolpidem Tartrate (Zolpidem Tartrate 5 Mg Tablet) 5 mg PO BEDTIME PRN PRN Reason: Insomnia Labs CBC & Chem 7: 07/24/21 08:03 07/24/21 08:03 Labs: Laboratory Results - last 24 hr 07/24/21 07/24/21 07/24/21 08:03 08:03 08:03 MCV 92.7 MCH 32.0 MCHC 34.5 RDW 11.1 Plt Count 395 MPV 9.0 L Immature Gran % (Auto) 0.5 H Neut % (Auto) 73.1 H Lymph % (Auto) 12.7 L [place] % (Auto) 12.4 H Eos % (Auto) 0.8 Baso % (Auto) 0.5 Lymph # (Auto) 0.8 L [place] # (Auto) 0.8 Eos # (Auto) 0.1 Baso # (Auto) 0.0 Abs Immat Gran (auto) 0.03 Absolute Neuts (auto) 4.8 Absolute Nucleated RBC 0.000 Nucleated RBC % (auto) 0.0 PT 15.7 H INR 1.4 H Anion Gap 15 Estim Creat Clear Calc 163.2 Estimated GFR > 60 Random Glucose 110 Calcium 9.0 D Procedures Date of Service Date of Service: 07/25/21 Progress Note: A&P Assessment and plan (1) Abscess: Status: Acute (2) S/P appendectomy: Status: Acute Assessment and Plan: 26-year-old male patient status post laparoscopic appendectomy returning with increased abdominal pain associated with nausea and vomiting. WBC found to be elevated to [address] of the abdomen and pelvis revealed fluid collection in the right lower quadrant adjacent to the cecum suggestive of abscess. He underwent aspiration of the abscess under CT guidance on 07/24/2021. Approximately 8 mL of purulence material was aspirated. Fluid cultures are pending at this time. Will continue the Zosyn IV pending culture results. Patient on regular diet and tolerating this well. Fall Risk Details Current Medications: Current Medications Acetaminophen (Acetaminophen 325 Mg Tablet) 650 mg PO Q6H PRN PRN Reason: Pain, Mild (Pain Scale 1-3) Hydromorphone HCl (Hydromorphone Hcl 0.5 Mg/0.5 Ml Syringe) 0.5 mg IVPUSH Q3H PRN; Protocol PRN Reason: Pain, Severe (Pain Scale 7-10) Last Admin: 07/25/21 02:49 Dose: 0.5 mg Documented by: Piperacillin Sod/Tazobactam (Sod 3.375 gm/ Sodium Chloride) 50 mls @ 100 mls/hr IV Q6H [facility] Last Admin: 07/25/21 06:14 Dose: 100 mls/hr Documented by: Ondansetron HCl (Ondansetron Hcl 4 Mg/2 Ml Vial) 4 mg IVPUSH Q8H PRN PRN Reason: Nausea and Vomiting Oxycodone HCl (Oxycodone Hcl Immed Release 5 Mg Tablet) 5 mg PO Q6H PRN PRN Reason: Pain, Moderate (Pain Scale 4-6 Pharmacy Consult (Consult Rx Perform Med Rec) 1 each MISCELLANE ONCE PRN PRN Reason: Consult order Sertraline HCl (Sertraline Hcl 50 Mg Tablet) 150 mg PO BEDTIME [facility] Last Admin: 07/24/21 21:25 Dose: 150 mg Documented by: Zolpidem Tartrate (Zolpidem Tartrate 5 Mg Tablet) 5 mg PO BEDTIME PRN PRN Reason: Insomnia Time Spent With Patient Time: Total time spent is greater than 50% in coordination of care (as documented) at patient's floor/unit and/or counseling patient: Time with patient: 15 - 24 minutes Quality Stroke Does the patient have a stroke diagnosis?: No VTE Prior VTE?: No VTE Risk Level:: Surgical - low VTE Device Contraindication: N/A - Device Ordered VTE Drug Contraindication: Treatment Not Indicated
--- NOTE | 2021-07-25 08:59 | P.CDIC_ITS ---
CDI Concurrent Query Documentation Clarification: PHYSICIAN'S DOCUMENTATION REQUEST Date of Query: 07/25/21 0900 Patient Name: Zane Gonzalez Admit Date: 07/23/21 Dear Doctor, A review of the medical record indicates additional documentation may be needed. Please review below and update the documentation accordingly. Risk Factors/Clinical Indicators/Treatments Patient arrived with abdominal pain, wbc 16.3. IV Vancomycin. Abscess S/P lap appendectomy two weeks prior to this admit. CT: Abnormal CT of abdomen and pelvis showing postsurgical changes of interval appendectomy. Interval development of 2 adjacent bilobed/communicating complex fluid collections is identified within surgical bed. Please clarify the following: Abscess. l * [Diagnosis] is an expected occurrence following this surgery and is not a complication of the surgery. * [Diagnosis] is not an expected occurrence following this surgery but is not a complication of the surgery. * [Diagnosis] is a complication but not due to the surgery. * [Diagnosis] is a complication of the recent surgery. * Other (please specify) * Unable to determine Use of terms such as suspected, likely, concern for, or probable (associated with a specific diagnosis that is being evaluated, monitored, or treated as if it exists) are acceptable and can be coded in the inpatient setting, when documented at the time of discharge. Thank you, Julianne Kingston [facility], CDIS Extension: [phone] Please use your independent medical judgment in providing your response. THIS QUERY IS PART OF THE PERMANENT MEDICAL RECORD Provider Response: Other Other Diagnosis: The patient developed an abscess as a result of the surgery; murky fluid was noted after the appendix was stapled. The appendiceal abscess ?is an expected occurrence following this surgery and is not a complication of the surgery.
--- NOTE | 2021-07-25 09:20 | PC.NURSE ---
Pt A&Ox3, pain to abd 02/16, medicated as per [facility] orders for pain. Pt updated on POC, aware of need for IV antibiotics. Ambulatory with no assistance. Will continue to monitor.
--- NOTE | 2021-07-25 12:59 | PC.NURSE ---
Pt medicated as per [facility] orders for pain as well as antibiotics Pt A&Ox3, new gown provided, pt asked for IV location to be moved. Will attempt new IV placement at this time.
--- NOTE | 2021-07-25 13:40 | PC.NURSE ---
Pt A&Ox3, medicated as per [facility] orders for pain. IV from LAC removed, 22g placed in R forearm per pt complaint of pain to original IV site. Awaiting bed assignment. Will contineu to monitor.
--- NOTE | 2021-07-25 17:17 | PC.NURSE ---
Pt medicated for 7/10 pain, toiletiers provided, A&Ox3, friend brought subway for lunch, awaiting bed assignment, call de leon within reach, will continue to monitor.
--- NOTE | 2021-07-25 18:29 | PC.NURSE ---
Pt began coughing while eating dinner, made aware Tony pt asking for ensure, kitchen called. Pt offers no complaints at this time, but states he does not feel comfortable eating regular food at this time. T&P, nicotine in placeon LUpper arm.Will continue to monitor.
--- NOTE | 2021-07-25 20:25 | PC.NURSE ---
patient voided 4 times this shift ,no bowel movement .
[2021-07-25] MEDS: Sertraline HCL 50 MG TABLET 150 MG PO (20:29)
[2021-07-26] MEDS: HYDROmorphone HCl 0.5 MG/0.5 ML SYRINGE IVPUSH ×5 (00:27→21:26)
[2021-07-26] MEDS: Piperacillin Sodium/Tazobactam 3.375 GM in 0.9 % Sodium Chloride 50 ML IV ×3 (05:48→18:39)
[2021-07-26 07:53] VITALS: BP 126/69; PULSE 52; RESP 17; TEMP 36.2; O2SAT 97
--- NOTE | 2021-07-26 09:57 | PM.PNGS ---
Subjective Subjective Date of Service: 07/26/21 Interval history: Tired this morning. Pain is improving, currently a 4/10. Tolerating diet. Wondering about going home. Physical Exam Vital Signs: Vital Signs: Last Vital Signs Temp 97.1 F 07/26/21 07:53 Pulse 52 07/26/21 07:53 Resp 17 07/26/21 07:53 BP 126/69 07/26/21 07:53 Pulse Ox 97 07/26/21 07:53 BMI result Body Mass Index 34.9 Const: General: comfortable, no acute distress and alert Orientation/consciousness: patient oriented x3 Resp: Effort & Inspection: normal respiratory effort GI: Inspection: No distended and Yes incision (steris remain in place, band over drain site) Palpation (GI): Soft to palpation, Tenderness to palpation present (GI) in the RLQ and no guarding Skin: General skin exam: no rashes or lesions noted Neuro: General: patient oriented x3 Objective Data Active Medications Acetaminophen (Acetaminophen 325 Mg Tablet) 650 mg PO Q6H PRN PRN Reason: Pain, Mild (Pain Scale 1-3) Hydromorphone HCl (Hydromorphone Hcl 0.5 Mg/0.5 Ml Syringe) 0.5 mg IVPUSH Q3H PRN; Protocol PRN Reason: Pain, Severe (Pain Scale 7-10) Last Admin: 07/26/21 00:27 Dose: 0.5 mg Documented by: BRETT Piperacillin Sod/Tazobactam (Sod 3.375 gm/ Sodium Chloride) 50 mls @ 100 mls/hr IV Q6H [facility] Last Infusion: 07/26/21 06:24 Dose: 0 mls/hr Documented by: BRETT Ondansetron HCl (Ondansetron Hcl 4 Mg/2 Ml Vial) 4 mg IVPUSH Q8H PRN PRN Reason: Nausea and Vomiting Oxycodone HCl (Oxycodone Hcl Immed Release 5 Mg Tablet) 5 mg PO Q6H PRN PRN Reason: Pain, Moderate (Pain Scale 4-6 Pharmacy Consult (Consult Rx Perform Med Rec) 1 each MISCELLANE ONCE PRN PRN Reason: Consult order Sertraline HCl (Sertraline Hcl 50 Mg Tablet) 150 mg PO BEDTIME [facility] Last Admin: 07/25/21 20:29 Dose: 150 mg Documented by: LUIS A Zolpidem Tartrate (Zolpidem Tartrate 5 Mg Tablet) 5 mg PO BEDTIME PRN PRN Reason: Insomnia Labs CBC & Chem 7: 07/24/21 08:03 07/24/21 08:03 Microbiology Microbiology Results: Microbiology 07/24/21 12:40 Gram Stain - Final Abscess Appendiceal Routine Culture - Preliminary Culture in progress. Anaerobic Culture - Preliminary Culture in progress. Procedures Date of Service Date of Service: 07/26/21 Progress Note: A&P Assessment and plan (1) Abscess: Status: Acute (2) S/P appendectomy: Status: Acute Assessment and Plan: 26-year-old male patient status post laparoscopic appendectomy who returned with increased abdominal pain associated with nausea and vomiting. WBC found to be elevated to [address] of the abdomen and pelvis revealed fluid collection in the right lower quadrant adjacent to the cecum suggestive of abscess. He underwent aspiration of the abscess under CT guidance on 07/24/2021 with approx 8 mL of purulence material was aspirated, no drain left in place. He continues to improve symptomatically. Abdomen is benign. WBC normalized. Abscess cultures pending. Will continue IV Zosyn until cultures resulted. Patient comfortable with plan. Fall Risk Details Current Medications: Current Medications Acetaminophen (Acetaminophen 325 Mg Tablet) 650 mg PO Q6H PRN PRN Reason: Pain, Mild (Pain Scale 1-3) Hydromorphone HCl (Hydromorphone Hcl 0.5 Mg/0.5 Ml Syringe) 0.5 mg IVPUSH Q3H PRN; Protocol PRN Reason: Pain, Severe (Pain Scale 7-10) Last Admin: 07/26/21 00:27 Dose: 0.5 mg Documented by: Piperacillin Sod/Tazobactam (Sod 3.375 gm/ Sodium Chloride) 50 mls @ 100 mls/hr IV Q6H [facility] Last Infusion: 07/26/21 06:24 Dose: Infused Documented by: Ondansetron HCl (Ondansetron Hcl 4 Mg/2 Ml Vial) 4 mg IVPUSH Q8H PRN PRN Reason: Nausea and Vomiting Oxycodone HCl (Oxycodone Hcl Immed Release 5 Mg Tablet) 5 mg PO Q6H PRN PRN Reason: Pain, Moderate (Pain Scale 4-6 Pharmacy Consult (Consult Rx Perform Med Rec) 1 each MISCELLANE ONCE PRN PRN Reason: Consult order Sertraline HCl (Sertraline Hcl 50 Mg Tablet) 150 mg PO BEDTIME [facility] Last Admin: 07/25/21 20:29 Dose: 150 mg Documented by: Zolpidem Tartrate (Zolpidem Tartrate 5 Mg Tablet) 5 mg PO BEDTIME PRN PRN Reason: Insomnia Time Spent With Patient Time: Total time spent is greater than 50% in coordination of care (as documented) at patient's floor/unit and/or counseling patient: Time with patient: 15 - 24 minutes Quality Stroke Does the patient have a stroke diagnosis?: No VTE Prior VTE?: No VTE Risk Level:: Surgical - low VTE Device Contraindication: N/A - Device Ordered VTE Drug Contraindication: Treatment Not Indicated
[2021-07-26 12:00] VITALS: BP 144/73; PULSE 67; RESP 18; TEMP 36.7; O2SAT 97
[2021-07-26 15:42] VITALS: BP 126/60; PULSE 66; RESP 17; TEMP 36.2; O2SAT 96
[2021-07-26 19:55] VITALS: BP 133/92; PULSE 59; RESP 18; TEMP 36.3; O2SAT 95
[2021-07-26] MEDS: Sertraline HCL 50 MG TABLET 150 MG PO (21:26)
[2021-07-27] VITALS: BP 128/77; PULSE 60; RESP 18; TEMP 36.2; O2SAT 95
[2021-07-27] MEDS: Piperacillin Sodium/Tazobactam 3.375 GM in 0.9 % Sodium Chloride 50 ML IV ×2 (00:05→06:16)
[2021-07-27] MEDS: HYDROmorphone HCl 0.5 MG/0.5 ML SYRINGE IVPUSH ×2 (00:53→08:28)
[2021-07-27 04:00] VITALS: BP 117/73; PULSE 63; RESP 18; TEMP 36; O2SAT 96
[2021-07-27 07:12] VITALS: BP 110/50; PULSE 50; RESP 16; TEMP 35.5; O2SAT 97
[2021-07-27 08:28] VITALS: RESP 18
--- NOTE | 2021-07-27 09:39 | PM.DS ---
DS: Providers Provider Date of Service: 07/27/21 Date of admission: 07/23/21 21:22 Date of discharge: 07/27/21 Primary care physician: PORSHA Green Admitting clinician: Billy Michaels DS: Diagnosis Discharge Diagnosis (1) Abscess: Start date: 07/24/21 Status: Acute (2) S/P appendectomy: Start date: 07/10/21 Status: Acute DS: Summary Hospital Course Hospital Course: BRIEF HPI: Zane Gonzalez is a 26 year old male one week s/p laparoscopic appendectomy presenting with increased abdominal pain associated with nausea and vomiting. He was evaluate in the office this afternoon and found to be tender in the right lower quadrant with localized rebound tenderness. WBC was noted to be [address] abdomen and pelvis revealed a right lower quadrant abscess. HOSPITAL COURSE: He is admitted to the surgical service for further treatment of the RLQ abscess. He was started on IV zosyn and arrangements were made for CT guided drainage of the abscess. This was performed on 07/24/21 and appropximately 8mL purulent fluid was aspirated with follow up imaging revealing no further fluid collection. No drain was left in place. He began to improve symptomatically. His WBC normalized. He was tolerating a solid diet. He remained inpatient for IV antibiotics and while the abscess cultures resulted. He was discharged to home on 07/27/21 in stable condition on a PO course of AUGMENTIN covering ecoli and anaerobes for an additional 7 days of treatment. Status at Discharge Functional status at discharge: independent ambulation Overall status at discharge: patient is back to baseline Time Spent with Patient Time attestation: Total time spent providing and/or coordinating discharge services: Discharge coordination time: Less than 30 minutes Quality: Stroke Does the patient have a stroke diagnosis?: No Reason for No Anti-thrombotic at DC: Not indicated Reason for No Anticoagulant at DC: Not indicated Reason Not Initiating IV-Tpa: Not indicated Reason for No Anti-thrombotic by Day Two: Not indicated Reason for No Statin at DC: Not indicated Physical Exam Vital Signs: Vital Signs: Last Vital Signs Temp 96 F L 07/27/21 07:12 Pulse 50 07/27/21 07:12 Resp 18 07/27/21 08:28 BP 110/50 L 07/27/21 07:12 Pulse Ox 97 07/27/21 07:12 BMI result Body Mass Index 34.9 GI: Inspection: Yes normal to inspection Palpation (GI): Soft to palpation, nontender and no guarding DS: Data Data Completed and Pending Completed studies during hospitalization [Text1]: Procedures Resection of Appendix, Percutaneous Endoscopic Approach (07/10/21) Labs on day of discharge: Preliminary micro results at discharge 07/24/21 12:40 Routine Culture - Preliminary Abscess Appendiceal Gram positive cocci Escherichia coli Anaerobic Culture - Preliminary Culture in progress. Discharge Plan Discharge Anticipated Discharge Date/Time: 07/27/21 11:00 Patient Disposition: Home, Self-Care Discharge Diagnosis: intraabdominal abscess s/p CT guided drainage Referrals: Billy Adams FNP-BC [Primary Care Provider] - 1 Week Billy Michaels MD [Physician] - 1 Week Discharge Medications: New amoxicillin-pot clavulanate [Augmentin] 875-125 mg tablet 1 tab PO BID Qty: 14 RF: 0 Continued sertraline 100 mg tablet 150 mg PO BEDTIME RF: 0 Discharge Orders: Discharge Order (Routine); Ordered 07/27/21 Ordered By: Alicia Srinivasan Diet: advance to usual diet Activity on Discharge: No heavy lifting Stand Alone Forms: Patient Portal Discharge page, Work/School Release Care Plan Goals: Return to baseline health and gradual return to activity following recovery period. Health Concerns: intraabdominal abscess Plan of Treatment: s/p CT guided drainage, antibiotics Assessment: improved
--- NOTE | 2021-07-27 10:05 | PM.DS ---
DS: Providers Provider Date of Service: 07/27/21 <Roro Jim PA-C - Last Filed: 07/29/21 09:32> Date of admission: 07/23/21 21:22 <Roro Jim PA-C - Last Filed: 07/29/21 09:32> Primary care physician: ARIK Green <Roro Jim PA-C - Last Filed: 07/29/21 09:32> Attending physician on admission: Billy Michaels <Roro Jim PA-C - Last Filed: 07/29/21 09:32> DS: Diagnosis Discharge Diagnosis (1) Abscess: Status: Acute <Roro Jim PA-C - Last Filed: 07/29/21 09:32> (2) S/P appendectomy: Status: Acute <Roro Jim PA-C - Last Filed: 07/29/21 09:32> DS: Summary Hospital Course Hospital Course: BRIEF HPI: Zane Gonzalez is a 26 year old male one week s/p laparoscopic appendectomy presenting with increased abdominal pain associated with nausea and vomiting. He was evaluate in the office this afternoon and found to be tender in the right lower quadrant with localized rebound tenderness. WBC was noted to be [address] abdomen and pelvis revealed a right lower quadrant abscess. HOSPITAL COURSE: He is admitted to the surgical service for further treatment of the RLQ abscess. He was started on IV zosyn and arrangements were made for CT guided drainage of the abscess. This was performed on 07/24/21 and appropximately 8mL purulent fluid was aspirated with follow up imaging revealing no further fluid collection. No drain was left in place. He began to improve symptomatically. His WBC normalized. He was tolerating a solid diet. He remained inpatient for IV antibiotics and while the abscess cultures resulted. He was discharged to home on 07/27/21 in stable condition on a PO course of AUGMENTIN covering ecoli and anaerobes for an additional 7 days of treatment. <Roro Jim PA-C - Last Filed: 07/29/21 09:32> Status at Discharge Functional status at discharge: independent ambulation <Roro Jim PA-C - Last Filed: 07/29/21 09:32> Overall status at discharge: patient is progressing back to baseline <Roro Jim PA-C - Last Filed: 07/29/21 09:32> Time Spent with Patient Time attestation: Total time spent providing and/or coordinating discharge services: <Roro Jim PA-C - Last Filed: 07/29/21 09:32> Discharge coordination time: Less than 30 minutes <Roro Jim PA-C - Last Filed: 07/29/21 09:32> Quality: Stroke Does the patient have a stroke diagnosis?: No <Roro Jim PA-C - Last Filed: 07/29/21 09:32> Physical Exam Vital Signs: Vital Signs: Last Vital Signs Temp 97.1 F 07/26/21 07:53 Pulse 52 07/26/21 07:53 Resp 17 07/26/21 07:53 BP 126/69 07/26/21 07:53 Pulse Ox 97 07/26/21 07:53 BMI result Body Mass Index 34.9 <Roro Jim PA-C - Last Filed: 07/29/21 09:32> Const: General: comfortable and no acute distress <Roro Jim PA-C - Last Filed: 07/29/21 09:32> GI: Inspection: No distended <Roro Jim PA-C - Last Filed: 07/29/21 09:32> Palpation (GI): Soft to palpation and Tenderness to palpation present (GI) in the RLQ (mild) <Roro Jim PA-C - Last Filed: 07/29/21 09:32> Skin: General skin exam: no rashes or lesions noted <Roro Jim PA-C - Last Filed: 07/29/21 09:32> DS: Data Data Completed and Pending Completed studies during hospitalization [Text1]: Procedures CT guided needle placement (07/24/21) <SERGIO San Last Filed: 07/29/21 09:32> Labs on day of discharge: Preliminary micro results at discharge 07/24/21 12:40 Routine Culture - Preliminary Abscess Appendiceal Culture in progress. Anaerobic Culture - Preliminary Culture in progress. <Roro Jim PA-C - Last Filed: 07/29/21 09:32> Discharge Plan Discharge Anticipated Discharge Date/Time: 07/27/21 11:00 <Roro Jim PA-C - Last Filed: 07/29/21 09:32> Patient Disposition: Home, Self-Care <Roro Jim PA-C - Last Filed: 07/29/21 09:32> Discharge Diagnosis: intraabdominal abscess s/p CT guided drainage <Roro Jim PA-C - Last Filed: 07/29/21 09:32> intraabdominal abscess s/p CT guided drainage <Billy Michaels MD - Last Filed: 07/29/21 10:38> Referrals: Billy Adams FNP- [Primary Care Provider] - 1 Week Billy Michaels MD [Physician] - 1 Week <Roro Jim PA-C - Last Filed: 07/29/21 09:32> Discharge Medications: New amoxicillin-pot clavulanate [Augmentin] 875-125 mg tablet 1 tab PO BID Qty: 14 RF: 0 Continued sertraline 100 mg tablet 150 mg PO BEDTIME RF: 0 <Roro Jim PA-C - Last Filed: 07/29/21 09:32> Discharge Orders: Discharge Order (Routine); Ordered 07/27/21 Ordered By: Alicia Srinivasan <Roro Jim PA-C - Last Filed: 07/29/21 09:32> Diet: advance to usual diet <Roro Jim PA-C - Last Filed: 07/29/21 09:32> advance to usual diet <Billy Michaels MD - Last Filed: 07/29/21 10:38> Activity on Discharge: No heavy lifting <Roro Jim PA-C - Last Filed: 07/29/21 09:32> No heavy lifting <Billy Michaels MD - Last Filed: 07/29/21 10:38> Stand Alone Forms: Patient Portal Discharge page, Work/School Release <Roro Jim PA-C - Last Filed: 07/29/21 09:32> Care Plan Goals: Return to baseline health and gradual return to activity following recovery period. <Roro Jim PA-C - Last Filed: 07/29/21 09:32> Health Concerns: intraabdominal abscess <Roro Jim PA-C - Last Filed: 07/29/21 09:32> Plan of Treatment: s/p CT guided drainage, antibiotics <Roro Jim PA-C - Last Filed: 07/29/21 09:32> Assessment: improved <Roro Jim PA-C - Last Filed: 07/29/21 09:32> Discharge Date/Time: 07/27/21 11:43 <SERGIO San Last Filed: 07/29/21 09:32>
--- NOTE | 2021-07-27 10:14 | MHC.CM.PN ---
PT CLEARED TO [facility] TODAY WITH NO SERVICES S/O TO TRANSPORT
== END 2021-07-27 11:43 | disposition home or self-care (01) | DRG 229 ==
LOC: HO.ED 21:31 → HO.EDOVER 21:50 → HO.S3 07-25 17:41
PROVIDERS: Radiology Diagnostic Radiology; Admitting Provider Surgery; Emergency Provider Emergency Medicine Emergency Medical Services; PCP Nurse Practitioner Family; Visit Provider Surgery
PROC: 0W9H3ZZ Drainage of Retroperitoneum, Percutaneous Approach (ICD-10-PCS; principal; 2021-07-24 11:30)
DX: K68.19 Other retroperitoneal abscess (principal); Z20.822 Contact with and (suspected) exposure to COVID-19
CPT/HCPCS: 10160; 36415; 77012; 80048; 85025; 85610; 87071; 87073; 87076; 87077; 87185; 87186; 87205; 87635; 96365; 96375; 99152; 99285; C1729; J1170; J2543

== ENCOUNTER → 2021-08-01 14:26 | Outpatient (BNVA) | payer BC, SELFPAY | PROVIDERS: PCP Nurse Practitioner Family; Referring Provider Nurse Practitioner Family; Visit Provider Surgery ==

== ENCOUNTER 2021-10-11 15:17 | Inpatient (IN) | payer BC, SELFPAY ==
--- NOTE | ~2021-10-11 | CT_ITS ---
EXAMINATION: CT ABDOMEN AND PELVIS WITH CONTRAST CLINICAL INFORMATION: Right lower quadrant pain and tenderness. Diarrhea. History of appendectomy with abscess COMPARISON: 07/23/2021 TECHNIQUE: Multidetector volumetric images were obtained from the superior aspect of the liver through the pubic symphysis following administration 85 mL of Omnipaque 350 intravenous contrast. Sagittal and coronal reformatted images were obtained on the technologist's workstation. Oral contrast: No This CT examination was performed using dose optimization techniques as appropriate, variously including the following: *Automated exposure control *Adjustment of mA and/or kV according to patient size (this includes techniques or standardized protocols for targeted exams where dose is matched to indication/reason for exam; i.e. extremities or head) *Use of iterative reconstruction technique DLP: 848 mGy-cm FINDINGS: LUNG BASES: The visualized lung bases are unremarkable. LIVER, GALLBLADDER, AND BILIARY TREE: The liver is normal in size, shape, and attenuation. No focal hepatic lesion or biliary ductal dilatation is present. The gallbladder is unremarkable with no evidence of radiopaque gallstones, gallbladder wall thickening, or obvious pericholecystic inflammatory changes. PANCREAS: Unremarkable. SPLEEN: Mild splenomegaly measuring 14.2 cm anterior to posterior and 13 cm craniocaudal. ADRENAL GLANDS: Unremarkable. KIDNEYS AND URETERS: The kidneys are normal in size, shape, and attenuation. No hydronephrosis, hydroureter, or calculi seen. No perinephric stranding. BLADDER: Unremarkable. GASTROINTESTINAL TRACT: Stomach and small bowel are nondilated. Again seen are surgical sutures at the cecum consistent with prior appendectomy. There continues to be fluid and fat stranding in the right lower quadrant along the right paracolic gutter. Several prominent enlarged presumably reactive lymph nodes are present as well. No discrete drainable fluid collection is present. Overall, the findings are improved from the prior study 07/23/2021 but certainly not resolved. ABDOMINAL WALL: No significant hernia is appreciated. LYMPH NODES: Likely reactive lymphadenopathy in the right lower quadrant. No central mesenteric, pelvic, or iliac lymphadenopathy. VASCULAR: Unremarkable. PELVIC VISCERA: Unremarkable. OSSEOUS STRUCTURES: Unremarkable. CT/CT abdomen pelvis w con IMPRESSION: Persistent inflammatory changes in the right lower quadrant. The findings are improved but not resolved from the prior study 07/23/2021, prior to CT-guided aspiration. There is persistent reactive lymphadenopathy. No discrete drainable fluid collection seen.
[2021-10-11 15:50] VITALS: BP 150/90; PULSE 76; RESP 16; TEMP 37.1; O2SAT 98; BMI 35.4
[2021-10-11 16:07] LABS: MANUAL DIFF FLAG NO
[2021-10-11 16:08] LABS: Appearance Urine CLEAR; Color Urine YELLOW; Glucose Urine UA NEG (NEG); Leukocyte Esterase Urine NEG (NEG); Nitrite Urine NEG (NEG); Specific Gravity - Urine >= 1.030 (1.005-1.025); Urine Blood NEG (NEG); Urine Ketones NEG (NEG); Urine Protein NEG (NEG-TRACE)
[2021-10-11 16:13] LABS: Basophils Percent Auto 0.2 % (0-2); Eosinophils Percent Auto 0.3 % (0-4); Hemoglobin 16.3 g/dl (14.0-18.0); Imm Gran Abs Auto 0.03 X10*3/uL (0.00-0.03); Imm Gran Pct Auto 0.3 % (0.0-0.4); Lymphocytes Absolute Auto 1.8 X10*3/uL (1.2-4.9); Mean Corpuscular HGB Conc 35.4 g/dl (31.0-36.0); Mean Corpuscular Hemoglobin 31.7 pg (27.0-33.0); Mean Corpuscular Volume 89.5 fL (80.0-98.0); Monocytes Absolute Auto 0.7 X10*3/uL (0.1-1.2); Monocytes Percent Auto 6.1 % (2-11); Neutrophils Absolute Auto 9.3 x10*3/uL (2.0-8.3); Neutrophils Percent Auto 78.1 % (45-73); Platelet Count 245 X10*3/uL (160-400); Red Blood Count 5.14 X10*6/uL (4.60-5.80); Red Cell Distribution Width 12.4 % (11.0-16.0); White Blood Count 11.8 X10*3/uL (4.8-10.8)
[2021-10-11 16:16] LABS: Mucus Urine 1+ /LPF; RBC Urine 0 /HPF (0); Squamous Epithelial Cell Urine TRACE /LPF; WBC Urine 0 /HPF (0-4)
[2021-10-11 16:23] LABS: Anion Gap 12 (12-20); Blood Urea Nitrogen 19 mg/dL (9-16); Calcium 10.1 mg/dL (8.4-10.2); Carbon Dioxide 28 mmol/L (22-29); Chloride 101 mmol/L (96-108); Creatinine Clr Calc Pharmacy 106.4; Estimated Glomerular Filt Rate > 60; Glucose Random 99 mg/dL (60-115); Potassium 3.9 mmol/L (3.3-5.1); Sodium 137 mmol/L (135-145)
[2021-10-11 19:58] VITALS: BP 143/83; PULSE 75; RESP 18; TEMP 37.2; O2SAT 96
--- NOTE | 2021-10-11 20:50 | ED_ITS ---
HPI - Abdominal Pain General Chief Complaint: Abdominal Pain Stated Complaint: stomach pains Time Seen by Provider: 10/11/21 20:32 Source: patient Mode of arrival: ambulatory Limitations: no limitations History of Present Illness HPI narrative: 26-year-old male who presents emergency department for evaluation of right lower quadrant pain which began this morning when he woke up at 08:00 hours. He describes the pain as a constant, stabbing pain which is 7/10 at its worst. The patient denied fever but did have associated chills and nausea with several episodes vomiting. He states that he also developed diarrhea this morning. He describes the diarrhea as yellow watery stool, he has had at least 12 episodes. The patient had appendicitis in July of 2021 which was complicated by an abscess which required Interventional Radiology drainage. Patient states that he was on antibiotics for 2 weeks but completed this in August of 2021. He has not been on antibiotics recently. He states that he was in [place] for approximately 3 weeks but did not get sick while he was there, he has not traveled outside of the country. He is not been around any sick contacts. MD elicited complaint: abdominal pain Onset (ago): day(s) (1) Pain Consistency: constant Location: RLQ Severity: severe Quality: stabbing Radiation: none Migration to: no migration Exacerbating factors: nothing Relieving factors: nothing Context: history of similar episodes (Appendicitis 07/2021 complicated by abscess-similar pain) Associated symptoms: nausea and chills Related Data Home Medications Medication Instructions Recorded Confirmed sertraline 100 mg tablet 150 mg PO BEDTIME tab 02/05/21 08/01/21 Allergies Allergy/AdvReac Type Severity Reaction Status Date / Time No Known Allergies Allergy Verified 10/11/21 14:27 Review of Systems Review of Systems Yes all other systems are reviewed and are negative [facility] Past Medical History [facility] Narrative: Past medical history: Obstructive sleep apnea. Past surgical history: Appendectomy in July of 2021 complicated by abscess requiring Interventional Radiology drainage. On antibiotics for 2 weeks after the procedure. Social history: He denies tobacco use. He states he does drink alcohol 3 times a week, drinks 3-4 shots of vodka and often he drinks more on the weekends. He smokes marijuana daily. He states that he smokes when he gets home from work to help him sleep at night Surgical History S/P appendectomy (07/10/21) Family History Family History Father No problems noted. Mother No problems noted. 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 Physical Exam ED Vital Signs: Vital Signs - 24 hr 10/11/21 15:50 10/11/21 19:58 Temperature 98.7 F 98.9 F Pulse Rate 76 75 Respiratory Rate 16 18 Blood Pressure 150/90 H 143/83 H Pulse Oximetry 98 96 BMI result Body Mass Index 35.4 Const General: cooperative and no acute distress Orientation/consciousness: oriented to person and oriented to place Limitations: no limitations HENMT Head: Yes normal to inspection, Yes normocephalic and Yes atraumatic Ears: external ears normal General nose exam: Normal external nose present Face and sinus: Yes normal facial exam Mouth: Normal oral and palatal mucosa present Throat: Yes posterior oropharynx normal Eyes General: appearance normal, both eyes and all related structures Pupils: Equal, round and reactive pupils present Neck Neck: Yes normal visual inspection, Yes no lymphadenopathy, Yes trachea midline and Yes supple Chest Chest palpation & inspection: normal inspection of the chest and normal palpation of entire chest wall Resp Effort & Inspection: normal respiratory effort and able to speak in complete sentences Auscultation: clear to auscultation bilaterally Cardio Rate: regular rate Rhythm: regular rhythm Heart sounds: S1 normal heart sound present, S2 normal heart sound present and no murmurs GI Inspection: Yes normal to inspection Palpation (GI): Soft to palpation, Tenderness to palpation present (GI) in the RLQ (Moderate) and no guarding Auscultation: normal bowel sounds General: Yes no CVA tenderness Back/Spine/Pelvis Back: no CVA tenderness Skin General skin exam: no rashes or lesions noted Neuro General: oriented to person and oriented to place Cranial nerves: Yes CN's II-XII intact bilaterally and Yes Equal, round and reactive pupils present Cognition (Neuro): normal cognition Motor exam (neuro): 5/5 motor strength present throughout Extrem General: Yes normal to inspection Psych Appearance: grossly normal Speech and movement: Normal speech and movement present Affect: normal affect Attitude: cooperative Thought process: Normal thought process present Thought content: Normal thought content present Course Course Course Narrative: 26-year-old male who presents emergency department for evaluation of right lower quadrant abdominal pain, nausea, vomiting, diarrhea which began this morning at 08:00 hours. The pain feels similar to his appendicitis pain. Patient had appendicitis in July 2021 complicated by an abscess which required IR drainage and antibiotics for 2 weeks. Patient's vital signs were normal. Physical examination did reveal right lower quadrant tenderness. Laboratory evaluation included a CBC, BMP, UA. Patient did have a slight elevation in his white blood count [id number] otherwise labs were unremarkable. I did add liver panel and lipase. Will also obtain a CT scan of the abdomen pelvis with IV contrast. Patient was treated with Toradol 30 mg IV, Zofran 4 mg IV and normal saline IV x1 L. 2356: The patient's liver function tests revealed a slight elevation in his ALT and alkaline phosphatase of 42 and 35. Lipase was normal. The CT scan of the patient's abdomen pelvis with IV contrast was interpreted as follows by the radiologist:? Again seen are surgical sutures at the cecum consistent with prior appendectomy. There continues to be fluid and fat stranding in the right lower quadrant along the right paracolic gutter. Several prominent enlarged presumably reactive lymph nodes are present as well. No discrete drainable fluid collection is present. Overall, the findings are improved from the prior study 07/23/2021 but certainly not resolved.? Given this finding, I am concerned that the patient has infection of his right lower quadrant which may be causing his pain. I did discuss this with the on- call surgeon, Dr. Posada. After this discussion, I did order blood cultures x2 and Zosyn 4.5 g IV. Patient also had increased pain and he was ordered to get morphine 4 mg IV. The patient will be admitted by Dr. Posada to his service for further management. MDM - Abdominal Pain Lab Data Result diagrams: 10/11/21 16:01 10/11/21 16:01 Labs: Lab Results 10/11/21 10/11/21 10/11/21 Range/Units 16:01 16:01 16:01 WBC 11.8 H (4.8-10.8) X10*3/uL RBC 5.14 D (4.60-5.80) X10*6/uL Hgb 16.3 D (14.0-18.0) g/dl Hct 46.0 D (42.0-52.0) % MCV 89.5 (80.0-98.0) fL MCH 31.7 (27.0-33.0) pg MCHC 35.4 (31.0-36.0) g/dl RDW 12.4 (11.0-16.0) % Plt Count 245 D (160-400) X10*3/uL MPV 9.0 L (9.4-12.4) fL Immature Gran % (Auto) 0.3 (0.0-0.4) % Neut % (Auto) 78.1 H (45-73) % Lymph % (Auto) 15.0 L (20-40) % [place] % (Auto) 6.1 (2-11) % Eos % (Auto) 0.3 (0-4) % Baso % (Auto) 0.2 (0-2) % Lymph # (Auto) 1.8 (1.2-4.9) X10*3/uL [place] # (Auto) 0.7 (0.1-1.2) X10*3/uL Eos # (Auto) 0.0 (0.0-0.4) X10*3/uL Baso # (Auto) 0.0 (0.0-0.2) X10*3/uL Abs Immat Gran (auto) 0.03 (0.00-0.03) X10*3/uL Absolute Neuts (auto) 9.3 H (2.0-8.3) x10*3/uL Absolute Nucleated RBC 0.000 (0.0-0.012) X10*3/uL Nucleated RBC % (auto) 0.0 (0.0-0.2) /100WBC Sodium 137 (135-145) mmol/L Potassium 3.9 (3.3-5.1) mmol/L Chloride 101 (96-108) mmol/L Carbon Dioxide 28 (22-29) mmol/L Anion Gap 12 (12-20) BUN 19 H D (9-16) mg/dL Creatinine 1.29 (0.5-1.4) mg/dL Estim Creat Clear Calc 106.4 Estimated GFR > 60 Random Glucose 99 (60-115) mg/dL Calcium 10.1 D (8.4-10.2) mg/dL Total Bilirubin 0.7 (0.0-1.0) mg/dL Direct Bilirubin 0.2 (0.0-0.5) mg/dL AST 30 (5-37) U/L ALT 42 H (0-40) U/L Alkaline Phosphatase 35 L (39-117) U/L Total Protein 7.6 (6.5-8.0) g/dL Albumin 4.7 (3.5-5.0) g/dL Lipase 12 (8-78) U/L Urine Color YELLOW Urine Appearance CLEAR Urine pH 6.0 (5.0-8.0) Ur Specific [place] >= 1.030 H (1.005-1.025) Urine Protein NEG (NEG-TRACE) MG/DL Urine Glucose (UA) NEG (NEG) MG/DL Urine Ketones NEG (NEG) MG/DL Urine Blood NEG (NEG) Urine Nitrite NEG (NEG) Ur Leukocyte Esterase NEG (NEG) Urine RBC 0 (0) /HPF Urine WBC 0 (0-4) /HPF Ur Squamous Epith Cells TRACE /LPF Urine Bacteria NONE /LPF Urine Mucus 1+ /LPF Discharge Plan Discharge Patient Disposition: Admitted As Inpatient Prescriptions: No Action sertraline 100 mg tablet 150 mg PO BEDTIME 0RF
[2021-10-11] MEDS: Ketorolac Tromethamine 15 MG/ML VIAL IVPUSH (21:15)
[2021-10-11] MEDS: ondansetron HCL 4 MG/2 ML VIAL IVPUSH (21:15)
[2021-10-11 21:17] LABS: Alanine Aminotransferase 42 U/L (0-40); Albumin Level 4.7 g/dL (3.5-5.0); Alkaline Phosphatase 35 U/L (39-117); Aspartate Amino Transferase 30 U/L (5-37); Bilirubin Direct 0.2 mg/dL (0.0-0.5); Bilirubin Total 0.7 mg/dL (0.0-1.0); Lipase 12 U/L (8-78); Total Protein 7.6 g/dL (6.5-8.0)
[2021-10-11] MEDS: 0.9 % Sodium Chloride 1,000 ML 999 ML IV (21:17)
[2021-10-11] MEDS: iohexoL 350 MG/ML 100 ML INFUS..BTL IV (21:38)
[2021-10-11] MEDS: Morphine Sulfate 4 MG/ML CARTRIDGE IVPUSH (23:53)
[2021-10-12 00:37] VITALS: BP 119/69; PULSE 69; RESP 16; TEMP 36.8; O2SAT 96
[2021-10-12] MEDS: Piperacillin Sodium/Tazobactam 4.5 GM in 0.9 % Sodium Chloride 100 ML IV (02:22)
[2021-10-12] MEDS: Lactated Ringers 1,000 ML 80 ML IVCONT ×4 (02:22→19:07)
--- NOTE | 2021-10-12 02:31 | PC.NURSE ---
I assumed care of this pt upon his arrival to bed 13. The pt states he came to the ED for evaluation of RLQ abdominal pain. He states he had an appendectomy in July and a subsequent abscess formation 2 weeks later for which he was seen and treated. Today, he states the pain feels exactly the same. He denies fevers. Denies chills. Denies nausea/vomiting, admits to some diarrhea but no decrease in his bowel movements. He is alert and oriented x 3, makes eye contact with RN and is calm and cooperative. IV access/labs were obtained. Pt has been taking PO fluids without difficulty IV abx infusing, pt is aware that he is TBADM and verbalizes an understanding of this. We will continue to monitor Zane.
[2021-10-12 03:26] VITALS: BP 128/72; PULSE 61; RESP 16; TEMP 36.2; O2SAT 98
[2021-10-12] MEDS: Piperacillin Sodium/Tazobactam 3.375 GM in 0.9 % Sodium Chloride 50 ML IV ×3 (06:36→18:17)
--- NOTE | 2021-10-12 07:22 | PHA.MEDREC ---
Pharmacy Consult ? Medication Reconciliation Pharmacy has completed the medication reconciliation.
[2021-10-12 07:56] VITALS: BP 117/59; PULSE 57; RESP 18; TEMP 37.1; O2SAT 96
--- NOTE | 2021-10-12 09:48 | P.HPGS_ITS ---
History of Present Illness History of Present Illness Date of Service: 10/14/21 Chief complaint: RLQ s/p appendectomy Narrative: Zane Gonzalez is a 26 year old male admitted last night for RLQ pain. He had undergone laparoscopic appendectomy for acute appendicitis with Dr. Urban last Decemebr 2020. He was readmitted 1 week postop for an abscess in the RLQ, and he underwent CT drainage at that time. There was no drain left in place. He was kept on antibiotics. He seems to have been doing well since then but yesterday. he had complained of RLQ pain again. He described some nausea and vomitting as well. He denies any fever. He was brought to the ED last night and a CT scan showed fluid and fat stranding in the RLQ, improved since since July 2021 but not resolved. There was no drainable abscess but in view of his pain, he was admitted for IV abx. He says he still has pain although this is not severe. he does not think this is worse than last night. Review of Systems Constitutional: Constitutional: Denies chills and Denies fever(s) Cardiovascular: Cardiovascular: Denies chest pain, Denies dyspnea and Denies dyspnea on exertion Respiratory: Respiratory: Denies cough, Denies dyspnea and Denies dyspnea on exertion Gastrointestinal: Gastrointestinal: Denies hematochezia and Denies change in bowel habits Genitourinary: Genitourinary: Denies hematuria and Denies difficulty urinating Musculoskeletal: Musculoskeletal: Denies back pain and Denies limited range of motion Neurologic: Denies focal weakness and Denies convulsions Psychiatric: Psychiatric: Denies depression and Denies mood swings [facility] Past Medical History Medical History (Updated 10/12/21 @ 10:01 by Jakob Posada MD) RLQ abdominal pain Sleep disorder, unspecified Family History Family History Father No problems noted. Mother No problems noted. Maternal Uncle Abdominal aortic aneurysm Surgical History Surgical History (Updated 10/12/21 @ 10:00 by Jakob Posada MD) S/P appendectomy (07/10/21) Social History Social History Household Members: Significant Other Housing: Apartment Do you presently have visiting nurse or other home services: No Alcohol intake: never Patient Tobacco Use Status: Never used Tobacco Second Hand Smoke Exposure: No Use of substances other than those prescribed or required for medical reasons: Yes Substance Use Type: Marijuana Substance Use Frequency: Daily Last Used Substance: Days (ago) Currently Displaying Signs/Symptoms of Drug Intoxication Withdrawal: No Have you been hit, kicked, punched, or otherwise hurt by someone within the past year? 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 Allergies Allergy/AdvReac Type Severity Reaction Status Date / Time No Known Allergies Allergy Verified 10/11/21 14:27 Active Medications: Current Medications Acetaminophen (Acetaminophen 325 Mg Tablet) 650 mg PO Q6H PRN PRN Reason: Fever >101 Piperacillin Sod/Tazobactam (Sod 3.375 gm/ Sodium Chloride) 50 mls @ 100 mls/hr IV Q6H [facility] Last Infusion: 10/12/21 07:06 Dose: Infused Documented by: Lactated Ringer's (Lr) 1,000 mls @ 80 mls/hr IVCONT .[id number] [facility] Last Admin: 10/12/21 03:29 Dose: 80 mls/hr Documented by: Ondansetron HCl (Ondansetron Hcl 4 Mg/2 Ml Vial) 4 mg IVPUSH Q8H PRN PRN Reason: Nausea and Vomiting Sodium Chloride (0.9 % Sodium Chloride Flush 3 Ml Syringe) 3 ml IVFLUSH QSHIFT [facility] Last Admin: 10/12/21 07:32 Dose: Not Given Documented by: Home Medications Medication Instructions Recorded Confirmed Last Taken Type sertraline 100 mg tablet 150 mg PO BEDTIME tab 02/05/21 10/12/21 07/22/21 History Physical Exam Vital Signs: Vital Signs: Last Vital Signs Temp 98.7 F 10/12/21 07:56 Pulse 57 10/12/21 07:56 Resp 18 10/12/21 07:56 BP 117/59 L 10/12/21 07:56 Pulse Ox 96 10/12/21 07:56 BMI result Body Mass Index 35.4 Const: General: comfortable and no acute distress Orientation/consciousness: patient oriented x3 Neck: Neck: Yes no lymphadenopathy Resp: Auscultation: clear to auscultation bilaterally Cardio: Rhythm: regular rhythm GI: Other: some RLQ tenderness, no guarding or rebound, no masses Palpation (GI): Soft to palpation, Tenderness to palpation present (GI) and no guarding Neuro: General: patient oriented x3 Results Results Labs: Short CBC 10/11/21 Range/Units 16:01 WBC 11.8 H (4.8-10.8) X10*3/uL Hgb 16.3 D (14.0-18.0) g/dl Hct 46.0 D (42.0-52.0) % Plt Count 245 D (160-400) X10*3/uL BMP 10/11/21 16:01 Sodium 137 Potassium 3.9 Chloride 101 Carbon Dioxide 28 BUN 19 H D Creatinine 1.29 Calcium 10.1 D Liver Function 10/11/21 Range/Units 16:01 Total Bilirubin 0.7 (0.0-1.0) mg/dL Direct Bilirubin 0.2 (0.0-0.5) mg/dL AST 30 (5-37) U/L ALT 42 H (0-40) U/L Alkaline Phosphatase 35 L (39-117) U/L Albumin 4.7 (3.5-5.0) g/dL Urine 10/11/21 Range/Units 16:01 Urine Color YELLOW Urine Appearance CLEAR Urine pH 6.0 (5.0-8.0) Ur Specific [place] >= 1.030 H (1.005-1.025) Urine Protein NEG (NEG-TRACE) MG/DL Urine Glucose (UA) NEG (NEG) MG/DL Abdomen CT scan report/results: report reviewed and image reviewed CT scan - pelvis: report reviewed and image reviewed Assessment and Plan (1) RLQ abdominal pain: Status: Acute He underwent lap appendectomy last July and had a postop abscess requring drainaage He started to have RLQ pain again yesterday. His CT shows stranding and fluid in the RLQ, with no drainable fluid. This is improved since Decemebr but not completely resolved. In view of his pain, I have started him back on Zosyn anhave kept him on clear liquids. He does not looks septic and has a benign sexam. I am uncertain as to why he still has some persistent inflammatory changes in the area, but it is possible he may have had a remnant nidus of infection from his appendectomy. He otherwise looks well. His mother was with him in the room and is comfortable with the plan. Quality Stroke Does the patient have a stroke diagnosis?: No VTE Prior VTE?: No VTE Risk Level:: Medical - low VTE Device Contraindication: N/A - Device Ordered VTE Drug Contraindication: Treatment Not Indicated Procedures Date of Service Date of Service: 10/12/21
[2021-10-12] MEDS: Morphine Sulfate 2 MG/ML CARTRIDGE IVPUSH ×4 (11:06→21:34)
[2021-10-12 11:30] VITALS: BP 138/74; PULSE 62; RESP 18; TEMP 36.7; O2SAT 96
--- NOTE | 2021-10-12 15:36 | MHC.CM.PN ---
PATIENT IS FULLY INDEPENDENT. NO DME OR VNA SERVICES HE WORKS AND IS ABLE TO SECURE TRANSPORT HOME AT TIME OF DISCHARGE. CURRENT PLAN IS IV ABX AND MONITOR. HE HAS BEEN VACCINATED AGAINST COVID-19 WITH THE MODERNA SERIES 2X. HCP IS ON FILE AND VERIFIED.
[2021-10-12 16:00] VITALS: BP 135/63; PULSE 71; RESP 18; TEMP 36.4; O2SAT 96
[2021-10-12 20:00] VITALS: BP 128/71; PULSE 79; RESP 18; TEMP 36.6; O2SAT 98
[2021-10-13] VITALS: BP 120/58; PULSE 74; RESP 18; TEMP 36.3; O2SAT 95
[2021-10-13] MEDS: Piperacillin Sodium/Tazobactam 3.375 GM in 0.9 % Sodium Chloride 50 ML IV ×4 (00:12→18:39)
[2021-10-13 04:00] VITALS: BP 124/57; PULSE 66; RESP 18; TEMP 36.4; O2SAT 96
[2021-10-13] MEDS: Lactated Ringers 1,000 ML 80 ML IVCONT (07:25)
[2021-10-13 08:00] VITALS: BP 136/76; PULSE 70; RESP 18; TEMP 36.6; O2SAT 95
[2021-10-13] MEDS: Morphine Sulfate 2 MG/ML CARTRIDGE IVPUSH ×3 (09:47→18:41)
--- NOTE | 2021-10-13 10:15 | PM.PNGS ---
Subjective Subjective Date of Service: 10/13/21 Interval history: says he feels better less RLQ pain tolerating clears hungry Physical Exam Vital Signs: Vital Signs: Last Vital Signs Temp 97.9 F 10/13/21 08:00 Pulse 70 10/13/21 08:00 Resp 18 10/13/21 08:00 BP 136/76 10/13/21 08:00 Pulse Ox 95 10/13/21 08:00 BMI result Body Mass Index 35.4 Const: General: comfortable and no acute distress Resp: Effort & Inspection: normal respiratory effort Cardio: Rhythm: regular rhythm GI: Other: soft, nondistended, minimal RLQ tenderness, no guarding/rebound Objective Data Active Medications Acetaminophen (Acetaminophen 325 Mg Tablet) 650 mg PO Q6H PRN PRN Reason: Fever >101 Piperacillin Sod/Tazobactam (Sod 3.375 gm/ Sodium Chloride) 50 mls @ 100 mls/hr IV Q[facility]H [facility] Last Infusion: 10/13/21 06:43 Dose: 0 mls/hr Documented by: CLARK Lactated Ringer's (Lr) 1,000 mls @ 80 mls/hr IVCONT .[id number] [facility] Last Admin: 10/13/21 07:25 Dose: 80 mls/hr Documented by: FLACO Morphine Sulfate (Morphine Sulfate 2 Mg/Ml Cartridge) 2 mg IVPUSH Q3H PRN; Protocol PRN Reason: Pain, Severe (Pain Scale 7-10) Last Admin: 10/13/21 09:47 Dose: 2 mg Documented by: FLACO Ondansetron HCl (Ondansetron Hcl 4 Mg/2 Ml Vial) 4 mg IVPUSH Q8H PRN PRN Reason: Nausea and Vomiting Sodium Chloride (0.9 % Sodium Chloride Flush 3 Ml Syringe) 3 ml IVFLUSH QSHIFT [facility] Last Admin: 10/13/21 07:26 Dose: Not Given Documented by: FLACO Non-Admin Reason: IV Running Labs CBC & Chem 7: 10/11/21 16:01 10/11/21 16:01 Microbiology Microbiology Results: Microbiology 10/12/21 00:38 Blood Culture - Preliminary Blood - Venous No growth after 24 hours. 10/12/21 00:38 Blood Culture - Preliminary Blood - Venous No growth after 24 hours. Procedures Date of Service Date of Service: 10/13/21 Progress Note: A&P Assessment and plan (1) RLQ abdominal pain: Status: Acute Assessment and Plan: clinically much improved no drainable abscess but with inflammatory changes in RLQ advance diet IV abx doing well possible dc home tomorrow Fall Risk Details Current Medications: Current Medications Acetaminophen (Acetaminophen 325 Mg Tablet) 650 mg PO Q6H PRN PRN Reason: Fever >101 Piperacillin Sod/Tazobactam (Sod 3.375 gm/ Sodium Chloride) 50 mls @ 100 mls/hr IV Q6H [facility] Last Infusion: 10/13/21 06:43 Dose: Infused Documented by: Lactated Ringer's (Lr) 1,000 mls @ 80 mls/hr IVCONT .[id number] [facility] Last Admin: 10/13/21 07:25 Dose: 80 mls/hr Documented by: Morphine Sulfate (Morphine Sulfate 2 Mg/Ml Cartridge) 2 mg IVPUSH Q3H PRN; Protocol PRN Reason: Pain, Severe (Pain Scale 7-10) Last Admin: 10/13/21 09:47 Dose: 2 mg Documented by: Ondansetron HCl (Ondansetron Hcl 4 Mg/2 Ml Vial) 4 mg IVPUSH Q8H PRN PRN Reason: Nausea and Vomiting Sodium Chloride (0.9 % Sodium Chloride Flush 3 Ml Syringe) 3 ml IVFLUSH QSHIFT [facility] Last Admin: 10/13/21 07:26 Dose: Not Given Documented by: Time Spent With Patient Time: Total time spent is greater than 50% in coordination of care (as documented) at patient's floor/unit and/or counseling patient: Time with patient: 15 - 24 minutes Quality Stroke Does the patient have a stroke diagnosis?: No VTE Prior VTE?: No VTE Risk Level:: Medical - low VTE Device Contraindication: N/A - Device Ordered VTE Drug Contraindication: Treatment Not Indicated
[2021-10-13 11:54] VITALS: BP 137/74; PULSE 68; RESP 18; TEMP 36.7; O2SAT 96
--- NOTE | 2021-10-13 15:11 | MHC.CM.PN ---
PER REVIEW OF NOTES, PATIENT SYMPTOMS IMPROVING. PLAN IS TO ADVANCE DIET AND IF TOLERATES, LIKELY DISCHARGE HOME Thursday10/14/21 WITH NO NEED FOR SERVICES. MOTHER OR SIGNIFICANT OTHER TO TRANSPORT.
[2021-10-13 16:00] VITALS: BP 119/58; PULSE 73; RESP 18; TEMP 36.8; O2SAT 96
[2021-10-13 19:48] VITALS: BP 128/59; PULSE 80; RESP 18; TEMP 36.4; O2SAT 96
[2021-10-14] VITALS: BP 132/85; PULSE 67; RESP 17; TEMP 36.2; O2SAT 96
[2021-10-14] MEDS: Piperacillin Sodium/Tazobactam 3.375 GM in 0.9 % Sodium Chloride 50 ML IV ×3 (01:09→11:48)
[2021-10-14] MEDS: Lactated Ringers 1,000 ML 80 ML IVCONT (01:16)
[2021-10-14 03:58] VITALS: BP 127/71; PULSE 62; RESP 17; TEMP 36.4; O2SAT 98
[2021-10-14 06:06] LABS: Hematocrit 41.6 % (42.0-52.0); Hemoglobin 14.7 g/dl (14.0-18.0); Mean Corpuscular HGB Conc 35.3 g/dl (31.0-36.0); Mean Corpuscular Hemoglobin 31.7 pg (27.0-33.0); Mean Corpuscular Volume 89.7 fL (80.0-98.0); Mean Platelet Volume 9.1 fL (9.4-12.4); Platelet Count 221 X10*3/uL (160-400); Red Blood Count 4.64 X10*6/uL (4.60-5.80); Red Cell Distribution Width 12.3 % (11.0-16.0); White Blood Count 5.3 X10*3/uL (4.8-10.8)
[2021-10-14 07:04] VITALS: BP 126/72; PULSE 73; RESP 18; TEMP 36.1; O2SAT 98
--- NOTE | 2021-10-14 08:38 | P.PNGS_ITS ---
Subjective Subjective Date of Service: 10/14/21 <Roro Jim PA-C - Last Filed: 10/14/21 08:42> 10/14/21 <Jakob Posada MD - Last Filed: 10/14/21 13:10> Interval history: Feels much better this morning. Denies any RLQ pain. Tolerating diet. Wants to go home. <Roro Jim PA-C - Last Filed: 10/14/21 08:42> Physical Exam Vital Signs: Vital Signs: Last Vital Signs Temp 97 F 10/14/21 07:04 Pulse 73 10/14/21 07:04 Resp 18 10/14/21 07:04 BP 126/72 10/14/21 07:04 Pulse Ox 98 10/14/21 07:04 BMI result Body Mass Index 35.4 <SERGIO San Last Filed: 10/14/21 08:42> Const: General: comfortable, no acute distress and alert <Roro Jim PA-C - Last Filed: 10/14/21 08:42> Orientation/consciousness: patient oriented x3 <Roro Jim PA-C - Last Filed: 10/14/21 08:42> GI: Inspection: No distended <Roro Jim PA-C - Last Filed: 10/14/21 08:42> Palpation (GI): Soft to palpation, Tenderness to palpation present (GI) in the RLQ (mild); Negative for with no rebound tenderness, no guarding and not rigid <Roro Jim PA-C - Last Filed: 10/14/21 08:42> Percussion: Yes normal to percussion <Roro Jim PA-C - Last Filed: 10/14/21 08:42> Skin: General skin exam: no rashes or lesions noted <SERGIO San Last Filed: 10/14/21 08:42> Neuro: General: patient oriented x3 <SERGIO San Last Filed: 10/14/21 08:42> Objective Data Active Medications Acetaminophen (Acetaminophen 325 Mg Tablet) 650 mg PO Q6H PRN PRN Reason: Fever >101 Piperacillin Sod/Tazobactam (Sod 3.375 gm/ Sodium Chloride) 50 mls @ 100 mls/hr IV Q6H [facility] Last Infusion: 10/14/21 05:49 Dose: 0 mls/hr Documented by: PALMA Lactated Ringer's (Lr) 1,000 mls @ 80 mls/hr IVCONT .[id number] [facility] Last Admin: 10/14/21 01:16 Dose: 80 mls/hr Documented by: PALMA Morphine Sulfate (Morphine Sulfate 2 Mg/Ml Cartridge) 2 mg IVPUSH Q3H PRN; Protocol PRN Reason: Pain, Severe (Pain Scale 7-10) Last Admin: 10/13/21 18:41 Dose: 2 mg Documented by: PALMA Ondansetron HCl (Ondansetron Hcl 4 Mg/2 Ml Vial) 4 mg IVPUSH Q8H PRN PRN Reason: Nausea and Vomiting Sodium Chloride (0.9 % Sodium Chloride Flush 3 Ml Syringe) 3 ml IVFLUSH QSHIFT [facility] Last Admin: 10/14/21 07:06 Dose: Not Given Documented by: ROQUE Non-Admin Reason: IV Running <Roro Jim PA-C - Last Filed: 10/14/21 08:42> Labs CBC & Chem 7: : 10/14/21 05:27 10/11/21 16:01 <Roro Jim PA-C - Last Filed: 10/14/21 08:42> Labs: Laboratory Results - last 24 hr 10/14/21 05:27 MCV 89.7 MCH 31.7 MCHC 35.3 RDW 12.3 Plt Count 221 MPV 9.1 L Absolute Nucleated RBC 0.000 Nucleated RBC % (auto) 0.0 <Roro Jim PA-C - Last Filed: 10/14/21 08:42> Microbiology Microbiology Results: Microbiology 10/12/21 00:38 Blood Culture - Preliminary Blood - Venous No growth after 48 hours. 10/12/21 00:38 Blood Culture - Preliminary Blood - Venous No growth after 48 hours. <Roro Jim PA-C - Last Filed: 10/14/21 08:42> Procedures Date of Service Date of Service: 10/14/21 <Roro Jim PA-C - Last Filed: 10/14/21 08:42> Progress Note: A&P Assessment and plan (1) RLQ abdominal pain: Status: Acute <Roro Jim PA-C - Last Filed: 10/14/21 08:42> Assessment and Plan: Much improved No significant pain or tenderness No fever WBC normal Looks well Okay to DC home today on oral antibiotics Seen and examined independently - agree with BRENDA Jim <Jakob Posada MD - Last Filed: 10/14/21 13:10> Plan 26 year old male with hx of appendectomy, developed subsequent intraabdominal abscess s/p drainage now presenting months later with RLQ pain. No drainable abscess but with inflammatory changes in RLQ on CT scan. Admitted for IV abx. Patient continues to be much improved and now asymptomatic. Tolerating diet. Abd very benign with mild RLQ tenderness without peritoneal signs. Stable for d/c to home later today on PO course of abx. F/u in office in 2 weeks. Patient comfortable with plan. <Roro Jim PA-C - Last Filed: 10/14/21 08:42> Fall Risk Details Current Medications: Current Medications Acetaminophen (Acetaminophen 325 Mg Tablet) 650 mg PO Q6H PRN PRN Reason: Fever >101 Piperacillin Sod/Tazobactam (Sod 3.375 gm/ Sodium Chloride) 50 mls @ 100 mls/hr IV Q6H [facility] Last Infusion: 10/14/21 05:49 Dose: Infused Documented by: Lactated Ringer's (Lr) 1,000 mls @ 80 mls/hr IVCONT .[id number] [facility] Last Admin: 10/14/21 01:16 Dose: 80 mls/hr Documented by: Morphine Sulfate (Morphine Sulfate 2 Mg/Ml Cartridge) 2 mg IVPUSH Q3H PRN; Protocol PRN Reason: Pain, Severe (Pain Scale 7-10) Last Admin: 10/13/21 18:41 Dose: 2 mg Documented by: Ondansetron HCl (Ondansetron Hcl 4 Mg/2 Ml Vial) 4 mg IVPUSH Q8H PRN PRN Reason: Nausea and Vomiting Sodium Chloride (0.9 % Sodium Chloride Flush 3 Ml Syringe) 3 ml IVFLUSH QSHIFT [facility] Last Admin: 10/14/21 07:06 Dose: Not Given Documented by: <Roro Jim PA-C - Last Filed: 10/14/21 08:42> Time Spent With Patient Time: Total time spent is greater than 50% in coordination of care (as documented) at patient's floor/unit and/or counseling patient: <Roro Jim PA-C - Last Filed: 10/14/21 08:42> Time with patient: 15 - 24 minutes <Roro Jim PA-C - Last Filed: 10/14/21 08:42> Quality Stroke Does the patient have a stroke diagnosis?: No <Roro Jim PA-C - Last Filed: 10/14/21 08:42> VTE Prior VTE?: No <Roro Jim PA-C - Last Filed: 10/14/21 08:42> VTE Risk Level:: Medical - low <SERGIO San Last Filed: 10/14/21 08:42> VTE Device Contraindication: N/A - Device Ordered <SERGIO San Last Filed: 10/14/21 08:42> VTE Drug Contraindication: Treatment Not Indicated <Roro Jim PA-C - Last Filed: 10/14/21 08:42>
[2021-10-14 10:57] VITALS: BP 141/86; PULSE 69; RESP 18; TEMP 36.1; O2SAT 95
--- NOTE | 2021-10-15 09:39 | PM.DS ---
DS: Providers Provider Date of Service: 10/14/21 Date of admission: 10/11/21 23:56 Primary care physician: Billy Adams [facility] Attending physician on admission: Jakob Posada DS: Diagnosis Discharge Diagnosis (1) RLQ abdominal pain: Status: Acute DS: Summary Hospital Course Hospital Course: BRIEF HPI: Zane Gonzalez is a 26 year old male admitted last night for RLQ pain. He had undergone laparoscopic appendectomy for acute appendicitis 07/2021. He was readmitted 1 week postop for an abscess in the RLQ and he underwent CT drainage at that time and completed an IV and PO course of antibiotics. He seems to have been doing well since then but yesterday. He had complained of RLQ pain again with some nausea and vomiting as well. He denies any fever. He was brought to the ED last night and a CT scan showed fluid and fat stranding in the RLQ, improved since since July 2021 but not resolved without a drainable abscess. HOSPITAL COURSE: He was non toxic appearing with a relatively benign exam but in view of his pain, the patient was admitted to the surgical service for IV abx and was started on IV zosyn. It was uncertain as to why he still had some persistent inflammatory changes in the area, but it is possible he may have had a remnant nidus of infection from his appendectomy. The patient felt improved with IV antibiotics. His pain was nearly resolved. He was advanced to a solid diet and kept on supportive measures. His leukocytosis resolved. The following day, his abdominal pain had resolved. His abdomen remained benign with very minimal remaining RLQ tenderness. He felt ready for discharge. He completed 2 days of IV zosyn and was discharged to home on a PO course of levaquin and flagyl. He is to follow up with Dr. Posada in two weeks. Status at Discharge Functional status at discharge: independent ambulation Overall status at discharge: patient is back to baseline Time Spent with Patient Time attestation: Total time spent providing and/or coordinating discharge services: Discharge coordination time: Less than 30 minutes Quality: Stroke Does the patient have a stroke diagnosis?: No Physical Exam Vital Signs: Vital Signs: Last Vital Signs Temp 97 F 10/14/21 10:57 Pulse 69 10/14/21 10:57 Resp 18 10/14/21 10:57 BP 141/86 H 10/14/21 10:57 Pulse Ox 95 10/14/21 10:57 BMI result Body Mass Index 35.4 DS: Data Data Completed and Pending Completed studies during hospitalization [Text1]: Past Procedures Drainage of Retroperitoneum, Percutaneous Approach (07/23/21) Resection of Appendix, Percutaneous Endoscopic Approach (07/10/21) Labs on day of discharge: Preliminary micro results at discharge 10/12/21 00:38 Blood Culture - Preliminary Blood - Venous No growth after 48 hours. 10/12/21 00:38 Blood Culture - Preliminary Blood - Venous No growth after 48 hours. Discharge Plan Discharge Patient Disposition: Home, Self-Care Discharge Diagnosis: intraabdominal inflammatory changes Referrals: Billy Adams FNP- [Primary Care Provider] - 1 Week Jakob Posada MD [Physician] - 2 Weeks Discharge Medications: New levofloxacin 500 mg tablet 500 mg PO DAILY Qty: 7 0RF metronidazole 500 mg tablet 500 mg PO Q8H Qty: 21 0RF Continued sertraline 100 mg tablet 150 mg PO BEDTIME 0RF Discharge Orders: Discharge Order (Routine); Ordered 10/14/21 Ordered By: Jakob Posada Diet: advance to usual diet Activity on Discharge: As tolerated Stand Alone Forms: Patient Portal Discharge page Activity Restrictions/Additional Instructions: Call Your Doctor If: ? ? -Your temperature exceeds 101.5? F? ? ? -You experience excessive pain or swelling ? ? -You have an unexpected reaction to medication ? ? -You experience continued vomiting/nausea Care Plan Goals: Resolution of abd pain Health Concerns: RLQ abd pain Plan of Treatment: Antibiotics, obs Assessment: Improved Discharge Date/Time: 10/14/21 13:00
== END 2021-10-14 13:00 | disposition home or self-care (01) | DRG 251 ==
LOC: HO.ED 23:59 → HO.EDOVER 10-12 00:36 → HO.S3 10-12 01:36
PROVIDERS: Emergency Medicine; Admitting Provider Surgery; Emergency Provider Emergency Medicine Emergency Medical Services; PCP Nurse Practitioner Family; Visit Provider Surgery
DX: R10.31 Right lower quadrant pain (principal); D72.829 Elevated white blood cell count, unspecified; Z79.899 Other long term (current) drug therapy
CPT/HCPCS: 36415; 74177; 80048; 80076; 81001; 83690; 85025; 85027; 87040; 96361; 96365; 96375; 99285; J1885; J2270; J2405; J2543; Q9967

== ENCOUNTER → 2021-10-16 13:27 | Outpatient (BNVA) | payer BC, SELFPAY | PROVIDERS: PCP Nurse Practitioner Family; Visit Provider Surgery ==

== ENCOUNTER 2024-12-09 11:38 | Outpatient (AMB) | payer BC, SELFPAY ==
[2024-12-09 13:16] VITALS: BP 120/82; PULSE 62; O2SAT 98
--- NOTE | 2024-12-09 13:16 | AM.OFFWIN_ITS ---
Intake Vital Signs 12/09/24 13:16 Weight 213 lb BP 120/82 Blood Pressure Location Rt brachial Position Sitting Pulse 62 Pulse Source Pulse Oximeter Pulse Oximetry (%) 98 Oxygen Delivery Method Room Air Intake Visit Reasons: EP tick bite on back LT knee Intake Note: Patient here for tick bite on back of left knee that he noticed last night. Patient Tobacco Use Status: Never used Tobacco Allergies No Known Allergies Allergy (Verified 12/09/24 13:21) Do you need a note to return to daycare/school/sports/work: Yes HPI HPI Comments History of Present Illness Details History of Present Illness - The patient is a 29-year-old male pres enting with concern for retained tick head after removal. - Notably, the patient reported discover ing the tick the previous night, attempting to remove it after scratching off its body inadvertently. - The discovery of the tick followed kwame coyle outdoors approximately one and a half to two days prior. - Patient denies fever, rash, or joint p ain, symptoms often associated with tick bites, although he has had symptoms leah to cold or allergies recently. Physical Exam General: Cooperative, healthy appearing, comfortable, no acute distress and well developed Orientation: Patient oriented x3 Limitations: No limitations Head: Normal to inspection Ears: Hearing grossly normal bilaterally Nose: Normal External nose present Face and sinus: Normal facial exam Eyes: Appearance normal, both eyes and all related structures Neck: Normal visual inspection and Yes full ROM Respiratory: Normal respiratory effort and able to speak in complete sentences. Skin: left posterior distal thigh has a 0.5cm area of erythema with pinpoint black. no warmth, no drainage, no signs of infection noted Neuro: Patient oriented x3 Extremities: Normal to inspection [facility] Medical History (Updated 12/09/24 @ 13:33 by Kari Ruano PA-C) Diarrhea RLQ abdominal pain Sleep disorder, unspecified Surgical History S/P appendectomy (07/10/21) Family History Father No problems noted. Mother No problems noted. 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 [employer] Review of Systems Const All systems reviewed & are unremarkable except as noted in HPI and below Physical Exam Vital Signs: Last Vital Signs Pulse 62 12/09/24 13:16 BP 120/82 12/09/24 13:16 Pulse Ox 98 12/09/24 13:16 Oxygen Delivery Method Room Air 12/09/24 13:16 Assessment & Plan Assessment & Plan (1) Tick bite of left thigh: Code(s): S70.362A - Insect bite (nonvenomous), left thigh, initial encounter; W57.XXXA - Bitten or stung by nonvenomous insect and other nonvenomous arthropods, initial encounter Qualifiers: Encounter type: initial encounter Qualified Code(s): S70.362A - Insect bite (nonvenomous), left thigh, initial encounter; W57.XXXA - Bitten or stung by nonvenomous insect and other nonvenomous arthropods, initial encounter Plan: On examination, a small dark speck at the bite site was noted, potentially residual tick material or dried blood. Given the risk of Lyme disease, I prescribed a prophylactic dose of doxycycline. I advised the patient to observe for Lyme-related symptoms, such as joint pain or rash, and return if symptoms develop. This approach aligns with concerns of the tick's attachment duration exceeding 24 hours. No further diagnostics are planned unless symptoms arise. Patient was informed and verbally consented to the use of an ambient scribe for clinic note documentation during this visit. Medications: New doxycycline hyclate 200 mg (2 x 100 mg) PO once 2 tabs 0RF tick bite ppx Coding Level of Care Code Est Pt Level 3 (04492) Diagnoses Tick bite of left thigh, initial encounter S70.362A; W57.XXXA Encounter type: initial encounter
== END 2024-12-09 13:33 | disposition home or self-care (01) ==
PROVIDERS: PCP Nurse Practitioner Family; Visit Provider Physician Assistant
DX: S70.362A Insect bite (nonvenomous), left thigh, initial encounter (principal); W57.XXXA Bitten or stung by nonvenomous insect and other nonvenomous arthropods, initial encounter

== ENCOUNTER → 2024-12-09 11:38 | Outpatient (BNVA) | payer BC, SELFPAY | PROVIDERS: PCP Nurse Practitioner Family; Visit Provider Physician Assistant ==